=== PATIENT | female | born 1945 | race Caucasian/White ===

== ENCOUNTER 2018-06-05 09:56 | Outpatient (CLI) | payer MEDICARE, BC, SELFPAY ==
[2018-06-05 11:54] LABS: ALT 15 U/L (12-78); AST 21 U/L (15-37); Albumin 3.6 g/dL (3.4-5.0); Alkaline Phosphatase 103 U/L (46-116); Anion Gap 8.5 mmol/L (3-11); BUN 12 mg/dL (7-18); Bilirubin, Total 0.4 mg/dL (0.2-1.0); CO2 28.5 mmol/L (21.0-32.0); CREATININE 0.73 mg/dL (0.55-1.02); Calcium 9.6 mg/dL (8.5-10.1); Chloride 105 mmol/L (98-107); Cholesterol 267 mg/dL (50-200); Glucose 89 mg/dL (70-100); HDL Cholesterol 64 mg/dL (40-60); LDL CHOLESTEROL 179 mg/dL (<100); Potassium 4.6 mmol/L (3.5-5.1); Sodium 142 mmol/L (136-145); Total Protein 6.8 g/dL (6.4-8.2); Triglyceride 93 mg/dL (30-150)
== END 2018-06-05 10:16 ==
DX: E78.5 Hyperlipidemia, unspecified (principal); F32.9 Major depressive disorder, single episode, unspecified; K21.9 Gastro-esophageal reflux disease without esophagitis
CPT/HCPCS: 36415; 80053; 80061; 83721

== ENCOUNTER 2018-12-10 16:33 | Outpatient (CLI) | payer MEDICARE, BC, SELFPAY ==
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
== END 2018-12-10 16:53 ==
PROVIDERS: Visit Provider Family Medicine
DX: S62.632A Displaced fracture of distal phalanx of right middle finger, initial encounter for closed fracture (principal); S67.192A Crushing injury of right middle finger, initial encounter; W23.0XXA Caught, crushed, jammed, or pinched between moving objects, initial encounter
CPT/HCPCS: 73140

== ENCOUNTER 2019-09-25 02:44 | Outpatient (CLI) | payer MEDICARE, BC, SELFPAY ==
[2019-09-25 11:47] LABS: Abs Immature Grans 0.12 k/cumm (0.0-0.09); Absolute Basophil Count 0.02 k/cumm (0.0-0.2); Absolute Eosinophil Count 0.13 k/cumm (0.0-0.7); Absolute Monocyte Count 0.76 k/cumm (0.11-0.7); Absolute Neutrophil Count 8.23 k/cumm (1.2-6.7); Basophils % 0.2; Eosinophils % 1.2; HCT 30.1 % (36.0-46.0); Immature Grans % 1.1 %; Lymphocytes % 14.7; Mean Corp. HGB Concentration 33.2 g/dL (32.0-36.0); Mean Corpuscular Hemoglobin 28.5 pg (27.0-33.0); Mean Corpuscular Volume 85.8 fL (80-95); Neutrophils % 75.8; Platelet Count 493 x1000/uL (130-400); RBC 3.51 m/cumm (4.00-5.20); RBC Distribution Width 12.8 % (11.7-14.6); White Blood Cell Count 10.86 k/cumm (4.4-10.8)
[2019-09-25 12:10] LABS: ALT 21 U/L (14-59); AST 15 U/L (15-37); Albumin 3.2 g/dL (3.4-5.0); Alkaline Phosphatase 118 U/L (46-116); Anion Gap 7.7 mmol/L (3-11); BUN 15 mg/dL (7-18); Bilirubin, Total 0.3 mg/dL (0.2-1.0); CO2 30.3 mmol/L (21.0-32.0); CREATININE 1.04 mg/dL (0.55-1.02); Calcium 10.2 mg/dL (8.5-10.1); Calculated LDL 141 mg/dL (<100); Chloride 96 mmol/L (98-107); Cholesterol 221 mg/dL (<200); Estimated GFR 51.66 (mL/min/1.73m2); Glucose 98 mg/dL (74-106); HDL Cholesterol 51 mg/dL (40-60); Potassium 3.7 mmol/L (3.5-5.1); Sodium 134 mmol/L (136-145); Total Protein 6.9 g/dL (6.4-8.2); Triglyceride 146 mg/dL (<150)
== END 2019-09-25 03:04 ==
DX: I10 Essential (primary) hypertension (principal); I25.10 Atherosclerotic heart disease of native coronary artery without angina pectoris; F32.9 Major depressive disorder, single episode, unspecified; K21.9 Gastro-esophageal reflux disease without esophagitis
CPT/HCPCS: 36415; 80053; 80061; 85025

== ENCOUNTER 2019-10-09 01:21 | Outpatient (CLI) | payer MEDICARE, BC, SELFPAY ==
[2019-10-09 12:23] LABS: HCT 32.1 % (36.0-46.0); HGB 10.3 g/dL (12.0-15.5); Mean Corp. HGB Concentration 32.1 g/dL (32.0-36.0); Mean Corpuscular Volume 87.2 fL (80-95); Mean Platelet Volume 8.1 fL (8.0-11.0); Platelet Count 359 x1000/uL (130-400); RBC 3.68 m/cumm (4.00-5.20); RBC Distribution Width 13.4 % (11.7-14.6); White Blood Cell Count 7.12 k/cumm (4.4-10.8)
[2019-10-09 13:12] LABS: BUN 17 mg/dL (7-18); CREATININE 1.15 mg/dL (0.55-1.02); Calcium 9.6 mg/dL (8.5-10.1); Chloride 102 mmol/L (98-107); Glucose 95 mg/dL (74-106); Potassium 4.1 mmol/L (3.5-5.1); Sodium 140 mmol/L (136-145)
== END 2019-10-09 01:41 ==
DX: D62 Acute posthemorrhagic anemia (principal); K91.89 Other postprocedural complications and disorders of digestive system
CPT/HCPCS: 36415; 80048; 85027

== ENCOUNTER 2020-04-03 08:51 | Outpatient (CLI) | payer MEDICARE, BC, SELFPAY ==
[2020-04-04 21:21] LABS: COVID-19 RT-PCR Result Positive (Negative)
== END 2020-04-03 09:11 ==
DX: Z20.828 Contact with and (suspected) exposure to other viral communicable diseases (principal)
CPT/HCPCS: U0003

== ENCOUNTER 2020-05-25 03:02 | Emergency (ER) | payer MEDICARE, BC, SELFPAY ==
[2020-05-25] VITALS (27 sets, daily range): BP systolic 166–231; BP diastolic 70–86; PULSE 59–79; RESP 8–31; TEMP 36.4; O2SAT 89–97
--- NOTE | 2020-05-25 03:00 | RT.EKG_ITS ---
APPROVED REPORT Exam: Resting ECG Patient Location: E HR:75 bpm ECG Measurements Heart Rate 75 AXIS MO 170 P 52 QRSd 80 QRS -32 QT 399 T 39 QTc 446 Conclusion Sinus rhythm...normal P axis, V-rate 60- 99 Left ventricular hypertrophy...multiple voltage criteria
--- NOTE | 2020-05-25 03:14 | W.ED.GENAD ---
Discharge Plan Disposition Patient Disposition: HOME Condition: Stable Discharge Details Clinical Impression: Chest pain Primary Care Provider: Citlaly Coleman ED Provider: Severiano Dixon Home Meds and New Rx's Prescriptions: Continued aspirin 81 mg tablet,delayed release (DR/EC) 81 mg PO DAILY RF: 0 venlafaxine [Effexor XR] 37.5 mg capsule,extended release 24hr 37.5 mg PO DAILY Qty: 90 RF: 4 montelukast [Singulair] 10 mg tablet 10 mg PO QPM Qty: 90 RF: 3 hydrochlorothiazide 25 mg tablet 25 mg PO DAILY Qty: 90 RF: 3 rosuvastatin [Crestor] 5 mg tablet 5 mg PO HS Qty: 90 RF: 3 albuterol sulfate [ProAir HFA] 90 mcg/actuation HFA aerosol inhaler 2 puff Inhalation QID PRN (Reason: shortness of breath or wheezing) Qty: 1 RF: 2 magnesium 250 MG tablet 250 mg PO PRN PRNRF: 0 potassium gluconate 600 MG tablet 600 mg PO PRN PRNRF: 0 cholecalciferol (vitamin D3) 1,000 UNITS tablet 1 tab PO QAM RF: 0 Discharge Instructions Instructions: Chest Pain (ED) Additional Instructions: Your blood work and cat scan did not show any concerning findings follow up with your primary care provider within 1 week if you have worsening pain, difficulty breathing or feel more ill return to the emergency department Medical Decision Making 75 yo female former smoker, hx of htn who had covid in early March and has had mild chronic dyspnea since comes in with chest pain. She states last night around 9pm had left axilla chest pain radiating to the anterior chest that resolved but woke up around 0200 with the symptoms again. she denies pain now unless she takes a deep breath. On exam has no lesions or rashes on the chets, clear lungs and speaking in full sentences. Normal peripheral pulses. Denies diaphoresis, n/v, back pain. Has no calf tenderness. EKG nondiagnostic, will obtain troponin. Given pleuritic nature of her chest pain wells is moderate, will obtain CTA to evaluate for pe. No tearing back pain and normal pulses so doubt dissection Pt's labs and imaging unremarkable and she remains asymptomatic. I recommended observation admission but she declined and has capacity to make her own decisions. She understands risks of missing Mi's with further testing and is willing to accept these risks including possible and permanent disability. She is willing to stay for a delta troponin, will continue to monitor pt remains asymptomatic and without complaints, second troponin negative and still declines observation admission. Will d/c and have her f/u with her pcp, return precautions given Differential Diagnosis Differential Diagnosis: nstemi, chest wall pain, pe, pna Medical Records Medical records reviewed: Yes I reviewed the patient's medical records. Imaging Data Radiologic Study: Attestation: I personally reviewed and interpreted this imaging study as follows: Imaging: CT Scan Radiologist's impression: IMPRESSION: 1. No evidence of acute pulmonary embolism. 2. Cardiac size normal. No pericardial effusion. No right heart strain. 3. Thoracic aorta normal caliber without aneurysm, dissection or disruption. 4. No consolidative pneumonia. No overt pulmonary edema. Mild basilar dependent and subsegmental atelectasis. Chronic pleural and parenchymal changes. Lab Data Lab results reviewed: Yes I reviewed the patient's lab results. ECG Data Attestation: I personally reviewed and interpreted this ECG (s) as follows: Prior ECG tracings: not available for review Interpretation: sinus rhythm, rate of 75, pr 170, qtc 446 HPI General Mode of arrival: ambulatory. Date/Time Provider Initiated Documentation: 05/25/20 03:03. Limitations to Documentation: no limitations. Information obtained by: patient. History of Present Illness 75 year old F presents to the emergency department with the chief complaint of chest pain, described as moderate, Patient started experiencing this hour(s) (1) and it has been intermittent. No relieving factors improve symptom(s), Other factors that worsen symptoms (deep breaths) . Patient notes no other symptoms.. Patient did receive the following treatments prior to arrival, Aspirin Related Data Home Medications Medication Instructions Recorded Confirmed magnesium 250 mg PO PRN PRN 07/14/16 05/25/20 potassium gluconate 600 mg PO PRN PRN 07/14/16 05/25/20 cholecalciferol (vitamin D3) 1 tab PO QAM 07/31/16 05/25/20 venlafaxine 37.5 mg 37.5 mg PO DAILY #90 cap 04/25/19 05/25/20 capsule,extended release 24 hr aspirin 81 mg tablet,delayed 81 mg PO DAILY 01/27/20 01/25/21 release montelukast 10 mg tablet 10 mg PO QPM #90 tab 09/30/19 05/25/20 hydrochlorothiazide 25 mg tablet 25 mg PO DAILY #90 tab 01/21/20 05/25/20 rosuvastatin 5 mg tablet 5 mg PO HS #90 tab-cap 03/17/20 05/25/20 albuterol sulfate 90 mcg/actuation 2 puff INHALATION QID PRN #1 05/05/20 05/25/20 aerosol inhaler inhaler Previous Rx's Medication Instructions Recorded venlafaxine 37.5 mg 37.5 mg PO DAILY #90 cap 04/25/19 capsule,extended release 24 hr montelukast 10 mg tablet 10 mg PO QPM #90 tab 09/30/19 hydrochlorothiazide 25 mg tablet 25 mg PO DAILY #90 tab 01/21/20 rosuvastatin 5 mg tablet 5 mg PO HS #90 tab-cap 03/17/20 albuterol sulfate 90 mcg/actuation 2 puff INHALATION QID PRN #1 05/05/20 aerosol inhaler inhaler Allergies Allergy/AdvReac Type Severity Reaction Status Date / Time Influenza Virus Vaccines Allergy Intermediate Verified 05/25/20 03:25 levofloxacin [From Levaquin] Allergy Intermediate hives Verified 05/25/20 03:25 egg Allergy Unknown Pt reports Verified 05/25/20 03:25 no allergy she eats eggs. lactase Allergy Unknown Verified 05/25/20 03:25 Sulfa (Sulfonamide Allergy Unknown Verified 05/25/20 03:25 Antibiotics) Tetracyclines Allergy Unknown Verified 05/25/20 03:25 wheat Allergy Unknown Verified 05/25/20 03:25 atorvastatin calcium AdvReac Intermediate joint aches Verified 05/25/20 03:25 [From Lipitor] fluvastatin sodium AdvReac Intermediate joint aches Verified 05/25/20 03:25 [From Lescol] oxycodone AdvReac Intermediate Nausea Verified 05/25/20 03:25 simvastatin [From Zocor] AdvReac Intermediate joint aches Verified 05/25/20 03:25 lactose AdvReac Mild GI upset Verified 05/25/20 03:25 pravastatin AdvReac Mild THUMB PAIN Verified 05/25/20 03:25 Review of Systems All systems reviewed & are unremarkable except as noted in HPI and below Constitutional Constitutional: Denies chills, Denies fever(s) and Denies weakness Respiratory Respiratory: Denies cough Gastrointestinal Gastrointestinal: Denies abdominal pain, Denies nausea and Denies vomiting Musculoskeletal Musculoskeletal: Denies joint swelling Neurologic Neurologic: Denies weakness Psychiatric Psychiatric: Denies depression [facility] Medical History (Updated 05/25/20 @ 04:42 by Severiano Dixon MD) Actinic keratoses Anemia Constipation Elevated BP without diagnosis of hypertension Essential hypertension Impacted cerumen, bilateral Pneumonia of right lung due to infectious organism (03/20/15) Post-operative complication Renal artery stenosis Stint placed [facility] 08/2019 Viral wart White coat syndrome with diagnosis of hypertension Surgical History AAA REPAIRED 04/16 [facility] Evaluated 06/20 & 06/2019 - [facility] (leaking proximal endograft, needs 2 stents RIGHT artery & surgical reinforcement) - completed 08/2019 at [facility] Biopsy of breast RIGHT Colonoscopy - IV Sedation (~03/2012) [facility] Extraction of cataract 05/29/14; left and right HERNIA REPAIR (~03/2002) EPIGASTRIC Total 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 KENDRICK Family History Mother , 82 Essential hypertension Abdominal aortic aneurysm Father , 79 Renal failure Sister Essential hypertension Heart disease Hyperlipidemia Son Hyperlipidemia Depression Son No problems noted. Social History Smoking/Tobacco Use Status: Former Tobacco Use Second Hand Exposure: Yes Smoking risk assessment performed?: Yes Alcohol Intake: never Drug use: Never Counseling given: No Counseling provided: none Caregiver/Support person: No Household members: none Housing: house Communication Needs: Hard of Hearing Do you need help understanding health information?: Rarely Pets and animals: Yes Pets and animals: cat(s) Sexually active: No Do you think of yourself as: straight/heterosexual Current gender identity: female What is your relationship status?: How often do you talk on the phone with friends or family?: three or more times per week How often do you get together with friends or relatives?: twice per week How often do you attend holiness or pentecostalism services?: 4 or more times per year Do you belong to any clubs or organized social groups?: no Panel score (0-1 are the most socially isolated patients): 2 What type of physical activity do you participate in: decline to answer Duration: decline to answer Frequency: decline to answer Alona/Mormonism: Restoration Special alona needs: No Seatbelt use: always Helmet use: No Drive intox or ride w/intox 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 Do you feel safe at home: Yes Do you feel safe in your relationship?: Yes Exam Const General: no acute distress Orientation: alert HENMT Head: normal to inspection Ears: external ears normal General nose exam: external nose normal Mouth: moist mucous membranes Eyes General: appearance normal, both eyes and all related structures Neck Neck: normal visual inspection Chest Chest: normal inspection of the chest Resp Effort & Inspection: normal respiratory effort and able to speak in complete sentences Cardio Rate: regular rate Skin General skin exam: no rashes or lesions noted Neuro General: patient alert and patient oriented x3 Extrem General: normal to inspection Psych Mental Status: mental status grossly normal
--- NOTE | 2020-05-25 03:15 | DI.CT_ITS ---
EXAM: CT CHEST PE CTA CLINICAL HISTORY: chest pain and shortness of breath. TECHNIQUE: Imaging Protocol: CT angiography of the chest was performed using pulmonary embolus gabi col. Multi planar reconstructions were performed. CONTRAST MATERIAL: Intravenous: Omnipaque 350 Contrast volume: 71 cc COMPARISON: CT CTA ABDOMEN from 11/23/2016 FINDINGS: CHEST: PULMONARY ARTERIES: There are no intraluminal filling defects to suggest acute pulmonary emboli. LUNGS: No confluent infiltrates nor pleural effusions nor pulmonary infarction. Mild benign-appearin g increased markings probable atelectasis noted in the posterior basal segment of the right lower lob e.. There are no significant focal findings in the trachea and mainstem bronchi.. There are no pleu ral effusions. MEDIASTINUM: There is no hilar nor mediastinal adenopathy. Visualized thyroid unremarkable.Size of th e retrocardiac hiatal hernia significantly decreased when compared to 2017. CARDIAC: Heart size is upper normal. There is no pericardial effusion.Caliber of the thoracic aorta is within normal limits. There is no evidence of shift of the interventricular septum. Lower most im ages of this study reveal aortic EVAR as well as additional stents in the celiac and superior mesente sebas arteries as well as in both renal arteries. There is no evidence of aortic dissection. PARTIALLY VISUALIZED UPPERMOST ABDOMEN: See above OSSEOUS: No significant osseous lesions.. IMPRESSION: 1. No evidence of acute pulmonary emboli. No evidence of pulmonary infarction.No pleural effusions. Mild increased markings-atelectasis in the right lung base. 2. No obvious right heart strain. 3. Abdominal aortic EVAR plus additional stents as described above noted. RADIATION DOSE DELIVERED: LINK-TO-SR Total DLP DATA REPOSITORY: All CT scans at this facility are submitted to the National Radiology Data Registry (NRDR) Dose Index Registry (DIR) with the [employer] (ACR). RADIATION OPTIMIZATION: All CT scans at this facility use at least one of these dose optimization te chniques: automated exposure control; mA and/or kV adjustment per patient size (includes targeted exa ms where dose is matched to clinical indication); or iterative reconstruction.
[2020-05-25 03:45] LABS: Abs Immature Grans 0.04 10^3/uL (0.0-0.06); Absolute Basophil Count 0.05 10^3/uL (0.0-0.2); Absolute Eosinophil Count 0.29 10^3/uL (0.0-0.7); Absolute Lymphocyte Count 2.02 10^3/uL (1.2-3.4); Absolute Monocyte Count 0.56 10^3/uL (0.1-0.8); Absolute Neutrophil Count 5.84 10^3/uL (1.2-6.7); Basophils % 0.6; Eosinophils % 3.3; HCT 40.6 % (36.0-46.0); HGB 13.1 g/dL (11.2-15.7); Immature Grans % 0.5; MCH 28.7 pg (27.0-33.0); MCHC 32.3 % (32.0-36.0); MPV 8.6 fL (8.0-11.0); Monocytes % 6.4; Neutrophils % 66.2; Nucleated RBC 0 %; Platelet Count 262 10^3/uL (130-400); RBC 4.56 10^6/uL (3.93-5.22); RDW 13.7 % (11.7-14.6); RDW-SD 44.4 fL
[2020-05-25 04:03] LABS: ALT 22 U/L (14-59); AST 16 U/L (15-37); Alkaline Phosphatase 92 U/L (46-116); Anion Gap 6.5 mmol/L (3-11); BUN 14 mg/dL (7-18); Bilirubin, Direct 0.07 mg/dL (0.00-0.20); Bilirubin, Total 0.4 mg/dL (0.2-1.0); CO2 30.5 mmol/L (21.0-32.0); CREATININE 0.96 mg/dL (0.55-1.02); Calcium 9.6 mg/dL (8.5-10.1); Chloride 101 mmol/L (98-107); Estimated GFR 56.51 (mL/min/1.73m2); Glucose 114 mg/dL (74-106); Lipase 313 U/L (73-393); Magnesium 2.3 mg/dL (1.8-2.4); Potassium 3.5 mmol/L (3.5-5.1); Sodium 138 mmol/L (136-145)
[2020-05-25] MEDS: Omnipaque 350 MG/ML 100 ML BTL IJ (04:03)
[2020-05-25] MEDS: Normal Saline - Diluent 50 ML VIAL IV (04:04)
[2020-05-25] MEDS: Normal Saline Flush 10 ML SYR IVP (04:04)
[2020-05-25 04:17] LABS: PTT Activated 23.8 sec (21.0-27.5); Prothrombin Time 9.6 sec (9.3-11.0)
[2020-05-25 04:20] LABS: Troponin I < 0.05 ng/mL (<0.06)
--- NOTE | 2020-05-25 04:22 | DI.VRAD_ITS ---
PROCEDURE INFORMATION: Exam: CT Angiography Chest With Contrast Exam date and time: 05/25/2020 3:30 AM Age: 75 years old Clinical indication: Shortness of breath; Type not specified; Prior surgery; Surgery date: 6+ months; Surgery type: Stent placed in aorta; Patient HX: Chest pain and SOB TECHNIQUE: Imaging protocol: Computed tomographic angiography of the chest with intravenous contrast. 3D rendering (Not supervised by radiologist): MIP and/or 3D reconstructed images were created by the technologist. Radiation optimization: All CT scans at this facility use at least one of these dose optimization techniques: automated exposure control; mA and/or kV adjustment per patient size (includes targeted exams where dose is matched to clinical indication); or iterative reconstruction. Contrast material: OMNIPAQUE 350; Contrast volume: 71 ml; Contrast route: INTRAVENOUS (IV); COMPARISON: CT CHEST WITH CONTRAST 04/07/2015 1:44 PM FINDINGS: Pulmonary arteries: No evidence of acute pulmonary embolism. Aorta: Thoracic aorta normal caliber without aneurysm, dissection or disruption. Other arteries: Partially visualized abdominal aortic stent with stents within the celiac trunk, superior mesenteric artery and both renal arteries which appear patent. Lungs: No consolidative pneumonia. No overt pulmonary edema. Mild basilar dependent and subsegmental atelectasis. Chronic pleural and parenchymal changes. 3 mm noncalcified nodule right upper lobe laterally, unchanged from previous. No further evaluation necessary. Pleural space: No pleural effusion. No pneumothorax. Heart: Cardiac size normal. No pericardial effusion. No right heart strain. Mediastinal space: Small hiatal hernia. Lymph nodes: Unremarkable. No enlarged lymph nodes. Liver: Multiple liver cysts, similar to previous. No obvious enlargement. No other masses. Bones/joints: Moderate degenerative changes noted throughout the spine. No fracture or subluxation. No obviously displaced acute rib fractures. No sternal fracture. Soft tissues: Unremarkable. IMPRESSION: 1. No evidence of acute pulmonary embolism. 2. Cardiac size normal. No pericardial effusion. No right heart strain. 3. Thoracic aorta normal caliber without aneurysm, dissection or disruption. 4. No consolidative pneumonia. No overt pulmonary edema. Mild basilar dependent and subsegmental atelectasis. Chronic pleural and parenchymal changes. Dictated and Authenticated by: Marco Combs MD. Ordering:ARIK العلي MD
--- NOTE | 2020-05-25 04:40 | NUR.NOTE ---
Nursing Note:Patient has decided to wait and have her second Troponin checked at 0615.
[2020-05-25 06:37] LABS: Troponin I < 0.05 ng/mL (<0.06)
== END 2020-05-25 06:47 | disposition home or self-care (01) ==
PROVIDERS: Emergency Provider Emergency Medicine
DX: R07.89 Other chest pain (principal); Z53.29 Procedure and treatment not carried out because of patient's decision for other reasons; I10 Essential (primary) hypertension; Z86.16 Personal history of COVID-19
CPT/HCPCS: 36415; 71275; 80053; 83690; 93005; 99285; 82248; 83735; 84484; 85025; 85610; 85730; 93010; 99284; J3490

== ENCOUNTER 2020-09-17 09:00 | Outpatient (CLI) | payer MEDICARE, BC, SELFPAY ==
--- NOTE | 2020-09-17 14:45 | DI.RAD_ITS ---
Exam(s) XR LUMBAR SPINE COMPLETE EXAM: XR LUMBAR SPINE COMPLETE CLINICAL HISTORY: lumbar back pain,m54.5. TECHNIQUE: 2D digital imaging was performed. COMPARISON: No exams were available for comparison FINDINGS: There is no evidence of acute fracture or listhesis nor pars defects. Mild loss of height of L1 note d approximately 10 percent and not acute appearing. There is moderate-advanced disc space narrowing at L5-S1 level. Also moderate disc space narrowing T12-L1. Mild retrolisthesis of L1 upon L2. Othe r disc spaces exhibit normal height. There is facet degenerative change at the lower 2 levels. Sacr oiliac joints unremarkable. No osseous lesions. Incidentally noted is an aortic EVAR and bilateral renal artery endovascular stents as well as a righ t hip prosthesis. IMPRESSION: DATA REPOSITORY: RADIATION DOSE DELIVERED:
--- NOTE | 2020-09-17 14:50 | DI.RAD_ITS ---
Exam(s) XR HIP LT COMPLETE AP PELVIS EXAM: XR HIP LT COMPLETE AP PELVIS CLINICAL HISTORY: left hip pain,m25.552. TECHNIQUE: 2D digital imaging was performed. COMPARISON: CR Pelvis - 1 View from 10/13/2016 FINDINGS: Right hip prosthesis is noted. Mild degenerative changes in the left hip. There is now an aortic EVAR evident. Distal [employer] most is are at the level of the common iliac arteri es. Visualized bowel gas pattern is nonspecific. No osseous lesions evident the pelvis. On the lat eral view of the left hip there is an air possible subtle lucency seen lower down in the mid aspect o f the femur, possibly significant. Recommend dedicated femur films as the next step appear. IMPRESSION: DATA REPOSITORY: RADIATION DOSE DELIVERED:
== END 2020-09-17 09:20 ==
PROVIDERS: Visit Provider Nurse Practitioner Family
DX: M25.552 Pain in left hip (principal); M54.5 Low back pain; M51.37 Other intervertebral disc degeneration, lumbosacral region; M51.35 Other intervertebral disc degeneration, thoracolumbar region; Z96.641 Presence of right artificial hip joint
CPT/HCPCS: 72110; 73502

== ENCOUNTER 2020-09-18 13:07 | Outpatient (CLI) | payer MEDICARE, BC, SELFPAY ==
--- NOTE | 2020-09-18 14:08 | DI.RAD_ITS ---
Exam(s) XR FEMUR LT EXAM: XR FEMUR LT CLINICAL HISTORY: per left hip film radiology recommendation m25.552 lt hip pain TECHNIQUE: COMPARISON: CR XR HIP LT COMPLETE AP PELVIS from 09/17/2020 FINDINGS: Four views were obtained. There are mild degenerative changes of the left hip. No apparent lytic or sclerotic lesion of the femur. Mild degenerative changes of the knee noted. IMPRESSION: RADIATION DOSE DELIVERED: Total DLP
== END 2020-09-18 13:27 ==
PROVIDERS: Visit Provider Nurse Practitioner Family
DX: M25.552 Pain in left hip (principal); M16.12 Unilateral primary osteoarthritis, left hip; M17.12 Unilateral primary osteoarthritis, left knee
CPT/HCPCS: 73552

== ENCOUNTER → 2020-10-01 10:55 | Outpatient (BNVA) | payer MEDICARE, BC, SELFPAY | PROVIDERS: Visit Provider Student in an Organized Health Care Education/Training Program | DX: M70.62 Trochanteric bursitis, left hip (principal); Z96.651 Presence of right artificial knee joint | CPT/HCPCS: 20610; J1040 ==

== ENCOUNTER 2021-03-22 00:38 | Outpatient (CLI) | payer MEDICARE, BC, SELFPAY ==
--- NOTE | 2021-03-22 11:10 | DI.MAMMO_ITS ---
Exam(s) MAMMO SCREENING EXAM: MAMMO SCREENING CLINICAL HISTORY: screening,z12.39 TECHNIQUE: Mammograms were interpreted according to the usual protocol including computer analysis w [employer] CAD system, tomosynthesis and C-view imaging. COMPARISON: 2012 through 2014 FINDINGS: The breasts are composed of scattered fibroglandular densities, Breast Density category B. No suspicious masses or suspicious microcalcifications are seen. No skin thickening or abnormal axillary lymph nodes are seen. There has been no significant change from prior exams. IMPRESSION: BI-RADS Category 1, Negative mammogram Yearly screening mammography is recommended. Breast Density - Category B, scattered fibroglandular densities. A negative radiographic report should not delay biopsy if a dominant or clinically suspicious mass is present. Up to ten percent of cancers are not identified on mammography. A negative report may reinforce clinical impression. Adenosis and dense breasts may obscure an underlying neoplasm. False positive reports average 6 to 10%. Patient will receive a letter notifying them of these results.
== END 2021-03-22 00:58 ==
DX: Z12.31 Encounter for screening mammogram for malignant neoplasm of breast (principal)
CPT/HCPCS: 77063; 77067

== ENCOUNTER 2021-06-30 16:58 | Outpatient (REF) | payer MEDICARE, BC, SELFPAY | END 2021-06-30 16:59 | disposition home or self-care (01) | LOC: LBN 16:58 | PROVIDERS: Visit Provider Family Medicine | DX: N39.0 Urinary tract infection, site not specified (principal) | CPT/HCPCS: 87086 ==

== ENCOUNTER → 2022-02-11 15:00 | Outpatient (CLI) | payer MEDICARE, BC, SELFPAY ==
--- NOTE | 2022-02-11 14:00 | DI.RAD_ITS ---
Exam(s) XR CHEST 2V PA LATERAL EXAM: XR CHEST 2V PA LATERAL CLINICAL HISTORY: BRONCHITIS--J40 TECHNIQUE: 2D digital imaging was performed of the chest. Two images were obtained. PA and lateral views were obtained. COMPARISON: CR CHEST 2 VIEWS PA,LAT from 04/15/2015 FINDINGS: MEDIASTINUM: Normal. HEART: Normal. PULMONARY VASCULATURE: Normal. LUNGS: Clear. PLEURAL SPACE: No pleural effusion or pneumothorax. BONE:Within normal limits for the patient's age. OTHER FINDINGS:An abdominal aortic stent is in place. IMPRESSION: No acute pulmonary findings. DATA REPOSITORY: RADIATION DOSE DELIVERED:
== END ==
PROVIDERS: PCP Family Medicine; Visit Provider Nurse Practitioner Family
DX: J40 Bronchitis, not specified as acute or chronic (principal)
CPT/HCPCS: 71046

== ENCOUNTER 2022-04-04 14:52 | Outpatient (REF) | payer MEDICARE, BC, SELFPAY | END 2022-04-04 14:53 | disposition home or self-care (01) | LOC: LBN 14:52 | PROVIDERS: PCP Family Medicine; Visit Provider Family Medicine | DX: N76.0 Acute vaginitis (principal) | CPT/HCPCS: 87480; 87510; 87660 ==

== ENCOUNTER → 2022-04-08 00:36 | Outpatient (CLI) | payer MEDICARE, BC, SELFPAY ==
--- NOTE | 2022-04-08 10:51 | DI.DEXA_ITS ---
Exam(s) XR DEXA BONE DENSITY W/WO ADENIKE EXAM: XR DEXA BONE DENSITY W/WO ADENIKE CLINICAL HISTORY: OSTEOPOROSIS,M81.0 TECHNIQUE: COMPARISON: CR XR HIP LT COMPLETE AP PELVIS from 09/17/2020 FINDINGS: Lateral Spine Image: Unremarkable. No compression deformities identified. Left hip: Total T-Score: -0.8. This compares to 0.0 on the prior examination. Total Z-Score: 1.2 T- and Z-scores: Within normal limits. Left forearm: Total T-Score: -2.0. Compares to -1.5 on the prior examination. Total Z-Score: 0.7 T- and Z-scores: Findings are consistent with osteopenia. IMPRESSION: Findings of osteopenia in the left forearm.
== END ==
PROVIDERS: PCP Family Medicine; Visit Provider Family Medicine
DX: M85.88 Other specified disorders of bone density and structure, other site (principal); Z13.820 Encounter for screening for osteoporosis
CPT/HCPCS: 77080

== ENCOUNTER 2022-07-07 11:36 | Emergency (ER) | payer MEDICARE, BC, SELFPAY ==
[2022-07-07] VITALS (70 sets, daily range): BP systolic 169–217; BP diastolic 68–101; PULSE 59–79; RESP 7–37; TEMP 36–36.7; O2SAT 90–99
--- NOTE | 2022-07-07 11:30 | RT.EKG_ITS ---
APPROVED REPORT Exam: Resting ECG Reason for Exam: chest pain Patient Location: E HR:70 bpm ECG Measurements Heart Rate 70 AXIS ND 160 P 67 QRSd 79 QRS -46 QT 390 T 46 QTc 422 Conclusion Sinus rhythm...normal P axis, V-rate 60- 99 Left anterior fascicular block...axis(240,-40), init forces inf Left ventricular hypertrophy...multiple voltage criteria no stemi
--- NOTE | 2022-07-07 12:01 | W.ED.GENAD ---
Discharge Plan Disposition Patient Disposition: Home Condition: Stable Discharge Details Clinical Impression: Chest pain Primary Care Provider: Vickie Adams ED Provider: Severiano Dixon Home Meds and New Rx's Prescriptions: Continued meclizine 25 mg tablet 25 mg PO DAILY PRN (Reason: motion sickness) Qty: 10 0RF Rx Instructions: may take one tab daily for vertigo symptoms aspirin 81 mg tablet,chewable 81 mg PO DAILY fluticasone propionate [Allergy Relief (fluticasone)] 50 mcg/actuation spray,suspension 1 spray intranasal BID PRN (Reason: nasal congestion) Qty: 16 2RF albuterol sulfate [ProAir HFA] 90 mcg/actuation HFA aerosol inhaler 2 puff Inhalation QID PRN (Reason: shortness of breath or wheezing) Qty: 1 2RF hydrochlorothiazide 25 mg tablet 25 mg PO DAILY Qty: 90 3RF omeprazole 20 mg capsule,delayed release(DR/EC) 20 mg PO DAILY PRN (Reason: GERD) Qty: 90 0RF Rx Instructions: Take in the evening, 2 hours from last food. rosuvastatin [Crestor] 5 mg tablet 5 mg PO HS Qty: 90 3RF Rx Instructions: for cholesterol venlafaxine [Effexor XR] 37.5 mg capsule,extended release 24hr 37.5 mg PO DAILY Qty: 90 4RF magnesium 250 MG tablet 250 mg PO PRN PRN potassium gluconate 600 MG tablet 600 mg PO PRN PRN Patient Comments: 07/14/16 per pt uses for leg cramps. Discharge Instructions Instructions: Chest Pain (ED) Additional Instructions: your blood work and cat scan did not show concerning findings follow up with your primary care provider within 1 week if you feel more ill, severe worsening pain or difficulty breathing return to the emergency department Medical Decision Making 78 yo female with hx of AAA s/p repair years ago, renal artery stenosis, gerd, hld, who comes in with cc of sharp left sided chest pain earlier this morning lasting a few minutes and then had posterior right shoulder pain. These pains have resolved, were not severe, no dyspnea or diaphoresis. She arrives stable speaking clearly in no distress. She states the pain was in her left anterior chest. She appears well speaking clearly in no distress. She has clear lungs, no murmurs, soft nontender abdomen, normal peripheral pulses. Unclear etiology for her fleeting chest pain earlier, will obtain ekg and troponin as well as d dimer to screen for pe. No tearing back painand normal peripheral pulses so doubt dissection d dimer elevated, will pursue cta, still asymptomatic and initial troponin negative patient stable and asymptomatic, cta and delta troponin negative. Discussed with pt and she feels comfortable with d/c, will have her f/u with pcp, return precautions given Differential Diagnosis Differential Diagnosis: chest wall pain, nstemi, pe Medical Records Medical records reviewed: Yes I reviewed the patient's medical records. Imaging Data Radiologic Study: Attestation: I personally reviewed and interpreted this imaging study as follows: Imaging: CT Scan Radiologist's impression: no acute findings Lab Data Lab results reviewed: Yes I reviewed the patient's lab results. ECG Data Attestation: I personally reviewed and interpreted this ECG (s) as follows: Prior ECG tracings: available for review Interpretation: sinus rhythm, rate of 70, pr 160, no acute changes from prior ekg no stemi HPI General Mode of arrival: ambulatory. Date/Time Provider Initiated Documentation: 07/07/22 11:46. Limitations to Documentation: no limitations. Information obtained by: patient. History of Present Illness 77 year old F presents to the emergency department with the chief complaint of chest pain, described as mild, Patient started experiencing this hour(s) (2) and it has been now resolved. No relieving factors improve symptom(s), No exacerbating factors reported . Patient notes denies fever/chills. Patient did receive the following treatments prior to arrival, none Related Data Home Medications Medication Instructions Recorded Confirmed magnesium 250 mg tablet 250 mg PO PRN PRN 07/14/16 07/07/22 potassium gluconate 600 mg (99 mg) 600 mg PO PRN PRN 07/14/16 07/07/22 tablet meclizine 25 mg tablet 25 mg PO DAILY PRN motion sickness 09/16/20 07/07/22 #10 tabs fluticasone propionate 50 1 spray intranasal BID PRN nasal 10/14/21 07/07/22 mcg/actuation nasal congestion #16 grams spray,suspension (Allergy Relief (fluticasone)) albuterol sulfate 90 mcg/actuation 2 puff inhalation QID PRN 03/14/22 07/07/22 aerosol inhaler (ProAir HFA) shortness of breath or wheezing ##1 hydrochlorothiazide 25 mg tablet 25 mg PO DAILY #90 tabs 03/14/22 07/07/22 omeprazole 20 mg capsule,delayed 20 mg PO DAILY PRN GERD #90 caps 03/14/22 07/07/22 release rosuvastatin 5 mg tablet (Crestor) 5 mg PO HS #90 tab-caps 03/14/22 07/07/22 venlafaxine 37.5 mg 37.5 mg PO DAILY #90 caps 03/14/22 07/07/22 capsule,extended release 24 hr (Effexor XR) aspirin 81 mg chewable tablet 81 mg PO DAILY 04/04/22 07/07/22 Previous Rx's Medication Instructions Recorded meclizine 25 mg tablet 25 mg PO DAILY PRN motion sickness 09/16/20 #10 tabs fluticasone propionate 50 1 spray intranasal BID PRN nasal 10/14/21 mcg/actuation nasal congestion #16 grams spray,suspension (Allergy Relief (fluticasone)) albuterol sulfate 90 mcg/actuation 2 puff inhalation QID PRN 03/14/22 aerosol inhaler (ProAir HFA) shortness of breath or wheezing ##1 hydrochlorothiazide 25 mg tablet 25 mg PO DAILY #90 tabs 03/14/22 omeprazole 20 mg capsule,delayed 20 mg PO DAILY PRN GERD #90 caps 03/14/22 release rosuvastatin 5 mg tablet (Crestor) 5 mg PO HS #90 tab-caps 03/14/22 venlafaxine 37.5 mg 37.5 mg PO DAILY #90 caps 03/14/22 capsule,extended release 24 hr (Effexor XR) Allergies Allergy/AdvReac Type Severity Reaction Status Date / Time levofloxacin [From Levaquin] Allergy Intermediate hives Verified 07/07/22 10:44 lactase Allergy Unknown Verified 07/07/22 10:44 Sulfa (Sulfonamide Allergy Unknown Verified 07/07/22 10:44 Antibiotics) Tetracyclines Allergy Unknown Verified 07/07/22 10:44 wheat Allergy Unknown Verified 07/07/22 10:44 atorvastatin calcium AdvReac Intermediate joint aches Verified 07/07/22 10:44 [From Lipitor] fluvastatin sodium AdvReac Intermediate joint aches Verified 07/07/22 10:44 [From Lescol] oxycodone AdvReac Intermediate Nausea Verified 07/07/22 10:44 simvastatin [From Zocor] AdvReac Intermediate joint aches Verified 07/07/22 10:44 lactose AdvReac Mild GI upset Verified 07/07/22 10:44 pravastatin AdvReac Mild THUMB PAIN Verified 07/07/22 10:44 General Stated Complaint: Chest Pain ROBERT: 3 Review of Systems All systems reviewed & are unremarkable except as noted in HPI and below Constitutional Constitutional: Denies chills, Denies fever(s) and Denies weakness Cardiovascular Cardiovascular: Denies dyspnea Respiratory Respiratory: Denies cough and Denies dyspnea Gastrointestinal Gastrointestinal: Denies abdominal pain, Denies nausea and Denies vomiting Genitourinary Genitourinary: Denies dysuria Musculoskeletal Musculoskeletal: Denies joint swelling Integumentary/Breasts Skin/Breast: Denies rash Neurologic Neurologic: Denies weakness Psychiatric Psychiatric: Denies depression [facility] All Active Problems (Updated 07/07/22 @ 15:52 by Severiano Dixon MD) Chest pain (Acute) Hemorrhoids (Acute) Globus sensation (Acute) Post-nasal drip (Acute) Anemia (Chronic) Renal artery stenosis (Acute) Stint placed [facility] 08/2019 AAA (Acute) REPAIRED 04/16 [facility] Evaluated 06/20 & 06/2019 - [facility] (leaking proximal endograft, needs 2 stents RIGHT artery & surgical reinforcement) - completed 08/2019 at [facility] White coat syndrome with diagnosis of hypertension (Acute) Viral wart (Acute) Essential hypertension (Acute) Increased BMI (body mass index) (Acute 02/22/17) Hyperlipidemia (Acute 03/30/04) F/H CAD Hiatal hernia (Acute) 06/01/15 CT at [facility], most of stomach in thorax fundoplication times 2 Gastroesophageal reflux disease (Acute) 04/11 EGD, Dr Hubbard ([facility]) 10/18/17 :aparoscopic Paraesophageal Hernia Repair Depressive disorder (Acute) Coronary artery calcification seen on CT scan (Acute 06/01/15) [facility] Actinic keratosis of right worship (Acute 10/04/17) & lower right cheek Medical History (Updated 07/07/22 @ 15:52 by Severiano Dixon MD) Acute pain of left knee (08/30/17) Bronchitis Bunion of great toe (01/17/14) right great toe (seven surg and revisions) 03/12 [facility] recommend non surgical tx Cataract Chronic right shoulder pain (10/04/17) Constipation Elevated BP without diagnosis of hypertension Impacted cerumen, bilateral Pneumonia of right lung due to infectious organism (03/20/15) Right hip pain (05/06/14) h/o trochanteric bursitis [employer] lentigo URI (upper respiratory infection) Viral wart on cheek Surgical History (Updated 04/04/22 @ 10:12 by Vickie Adams MD, [place]) Biopsy of breast RIGHT Colonoscopy - IV Sedation (~03/2012) [facility] Extraction of cataract 05/29/14; left and right HERNIA REPAIR (~03/2002) EPIGASTRIC Total 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 KENDRICK Family History Mother , 82 Essential hypertension Abdominal aortic aneurysm Father , 79 Renal failure Sister Essential hypertension Heart disease Hyperlipidemia Son Hyperlipidemia Depression Son No problems noted. Social History Smoking/Tobacco Use Status: Former Tobacco Use Second Hand Exposure: Yes Smoking risk assessment performed?: Yes Alcohol Intake: never Drug use: Never Counseling given: No Counseling provided: none Caregiver/Support person: No Household members: none Housing: house Communication Needs: Hard of Hearing Do you need help understanding health information?: Rarely Pets and animals: Yes Pets and animals: cat(s) Sexually active: No Do you think of yourself as: straight/heterosexual Current gender identity: female What is your relationship status?: How often do you talk on the phone with friends or family?: three or more times per week How often do you get together with friends or relatives?: twice per week How often do you attend faith or alevism services?: 4 or more times per year Do you belong to any clubs or organized social groups?: no Panel score (0-1 are the most socially isolated patients): 2 What type of physical activity do you participate in: decline to answer Duration: decline to answer Frequency: decline to answer Alona/Cheondoism: Bahai Special alona needs: No Seatbelt use: always Helmet use: No Drive intox or ride w/intox driver license examiner: No Do you feel safe at home: Yes Do you feel safe in your relationship?: Yes Exam Const General: no acute distress Orientation: alert HENMT Head: normal to inspection Ears: external ears normal General nose exam: external nose normal Mouth: moist mucous membranes Eyes General: appearance normal, both eyes and all related structures Neck Neck: normal visual inspection Chest Chest: normal inspection of the chest Resp Effort & Inspection: normal respiratory effort and able to speak in complete sentences Auscultation: clear to auscultation bilaterally Cardio Jugular venous pressure: no JVD Rate: regular rate Heart Sounds: no murmurs Skin General skin exam: no rashes or lesions noted Neuro General: patient alert and patient oriented x3 Extrem General: normal to inspection Psych Mental Status: mental status grossly normal Course Vital Signs Vital signs: Vital Signs Temperature 36.0 C L 07/07/22 11:37 Pulse 71 07/07/22 11:37 Pulse Oximetry 98 07/07/22 11:37 Temperature 36.0 C L 07/07/22 11:37 Temperature Source Tympanic 07/07/22 11:37 Pulse 71 07/07/22 11:37 Respiratory Rate 14 07/07/22 11:58 Respiratory Effort Normal 07/07/22 11:58 Respiratory Depth Normal 07/07/22 11:58 Respiratory Pattern Normal 07/07/22 11:58 Blood Pressure Position Sitting 07/07/22 11:37 Pulse Oximetry 98 07/07/22 11:37 Oxygen Delivery Method Room Air 07/07/22 11:37 Oxygen Flow Rate 0 07/07/22 11:37 Pain Level 0 07/07/22 11:37
[2022-07-07 12:11] LABS: Abs Immature Grans 0.04 10^3/uL (0.0-0.06); Absolute Basophil Count 0.03 10^3/uL (0.0-0.2); Absolute Eosinophil Count 0.21 10^3/uL (0.0-0.7); Absolute Lymphocyte Count 1.61 10^3/uL (1.2-3.4); Absolute Monocyte Count 0.53 10^3/uL (0.1-0.8); Absolute Neutrophil Count 5.69 10^3/uL (1.2-6.7); Basophils % 0.4; Eosinophils % 2.6; HCT 41.4 % (36.0-46.0); HGB 13.5 g/dL (11.2-15.7); Immature Grans % 0.5; Lymphocytes % 19.9; MCH 28.7 pg (27.0-33.0); MCHC 32.6 % (32.0-36.0); MCV 88 fL (80-95); MPV 8.2 fL (8.0-11.0); Monocytes % 6.5; Neutrophils % 70.1; Platelet Count 220 10^3/uL (130-400); RBC 4.71 10^6/uL (3.93-5.22); RDW 13.2 % (11.7-14.6); WBC 8.11 10^3/uL (4.4-10.8)
[2022-07-07 12:29] LABS: ALT 20 U/L (14-59); AST 17 U/L (15-37); Alkaline Phosphatase 104 U/L (46-116); Anion Gap 7.2 mmol/L (3-11); BUN 12 mg/dL (7-18); Bilirubin, Total 0.4 mg/dL (0.2-1.0); CO2 31.8 mmol/L (21.0-32.0); CREATININE 0.9 mg/dL (0.55-1.02); Calcium 9.8 mg/dL (8.5-10.1); Chloride 101 mmol/L (98-107); Estimated GFR 65.44 (mL/min/1.73m2); Glucose 99 mg/dL (74-106); Lipase 25 U/L (16-77); Magnesium 2.1 mg/dL (1.8-2.4); Potassium 3.7 mmol/L (3.5-5.1); Sodium 140 mmol/L (136-145); Troponin I < 50 ng/L (<or=60)
[2022-07-07 12:38] LABS: INR 0.9 (0.9-1.1); PTT Activated 25.1 sec (21.5-31.9); Prothrombin Time 9.3 sec (9.3-11.0)
[2022-07-07 12:46] LABS: D-Dimer 6127 ng/mlFEU (<500)
--- NOTE | 2022-07-07 13:15 | DI.CT_ITS ---
Exam(s) CT CHEST PE CTA EXAM: CT CHEST PE CTA CLINICAL HISTORY: chest pain, elevted d dimer. TECHNIQUE: Imaging Protocol: Axial CT angiography was performed with multi-slice acquisition and mu lti-planar reconstructions as well as axial, coronal and sagittal MIP reconstructions. CONTRAST MATERIAL: Intravenous: Omnipaque 350 Contrast volume:100 ml COMPARISON: CT CT CHEST PE CTA from 05/25/2020 FINDINGS: Pulmonary Arteries: No evidence of filling defect to suggest pulmonary emboli. Tracheobronchial tree: Patent where visualized. Mediastinum and Mariana: No dominant adenopathy or fluid collection. Pulmonary parenchyma: No consolidation or dominant measurable mass. Mild respiratory motion and depen dent changes. Pleura: No effusion or pneumothorax. Heart: The heart is mildly dilated. Coronary artery calcifications are seen. Aorta: Thoracic aorta non-dilated. No aneurysm. No dissection. Atherosclerotic changes. Stents in abdominal aorta, celiac axis and SMA. Upper abdomen: Small hiatal hernia. Stable liver cysts. No further follow-up indicated. Bones: Degenerative changes. No compression fractures. Tubes, Catheters, and Lines: None IMPRESSION: No evidence of pulmonary embolism. No acute lung findings. No evidence of aortic dissection. Findings called to Dr. Severiano Dixon emergency department provider. RADIATION DOSE DELIVERED: 433.81mGy.cm Total DLP DATA REPOSITORY: All CT scans at this facility are submitted to the National Radiology Data Registry (NRDR) Dose Index Registry (DIR) with the [employer] (ACR). RADIATION OPTIMIZATION: All CT scans at this facility use at least one of these dose optimization te chniques: automated exposure control; mA and/or kV adjustment per patient size (includes targeted exa ms where dose is matched to clinical indication); or iterative reconstruction.
[2022-07-07] MEDS: Normal Saline Flush 10 ML SYR IVP (13:33)
[2022-07-07] MEDS: Omnipaque 350 MG/ML 500 ML BTL-Imaging package IJ (13:34)
[2022-07-07 15:19] LABS: Troponin I < 50 ng/L (<or=60)
== END 2022-07-07 16:08 | disposition home or self-care (01) ==
PROVIDERS: Emergency Provider Emergency Medicine; PCP Family Medicine
DX: R07.89 Other chest pain (principal); R79.1 Abnormal coagulation profile
CPT/HCPCS: 36415; 71275; 80053; 83690; 93005; 99285; 83735; 84484; 85025; 85379; 85610; 85730; 93010

== ENCOUNTER 2022-09-09 11:15 | Outpatient (CLI) | payer MEDICARE, BC, SELFPAY ==
--- NOTE | 2022-09-09 10:30 | DI.RAD_ITS ---
Exam(s) XR HIP RT COMPLETE AP PELVIS EXAM: XR HIP RT COMPLETE AP PELVIS INDICATION: hip pain. COMPARISON: CR XR HIP LT COMPLETE AP PELVIS from 09/17/2020 CR XR DEXA BONE DENSITY W/WO ADENIKE from 04/08/2022 TECHNIQUE: 2D digital imaging was performed. Three views. FINDINGS: There has been no change in the alignment of the total right hip prosthesis. No suspicious bony luce ncies are seen. There are mild degenerative changes of left hip. Vascular stents metallic coils are noted. IMPRESSION: Stable appearance of hip prosthesis. DATA REPOSITORY: RADIATION DOSE DELIVERED:
== END 2022-09-09 11:16 | disposition home or self-care (01) ==
LOC: DIORS 11:15
PROVIDERS: PCP Family Medicine; Referring Provider Family Medicine; Visit Provider Student in an Organized Health Care Education/Training Program
DX: Z96.641 Presence of right artificial hip joint (principal); M25.551 Pain in right hip; G89.29 Other chronic pain
CPT/HCPCS: 99214; 73502

== ENCOUNTER 2022-09-30 00:19 | Outpatient (CLI) | payer MEDICARE, BC, SELFPAY ==
--- NOTE | 2022-09-30 07:45 | DI.NM_ITS ---
Exam(s) NM BONE SCAN 3 PHASE EXAM: NM BONE SCAN 3 PHASE CLINICAL HISTORY: pain, ? loosening,m25.551,[id number]. TECHNIQUE: Injected Dose: 25.4 mCi Tc-99m MDP COMPARISON: CR XR HIP RT COMPLETE AP PELVIS from 09/09/2022 FINDINGS: Perfusion: Symmetric. Blood Pool: Symmetric. Delayed: No focal area of intense suspicious uptake is seen around the right total hip prosthesis. Th ere are scattered multifocal areas of increased activity in both wrists, both knees and the, consiste nt with degenerative changes.. IMPRESSION: 1. No evidence of loosening of the right hip prosthesis. DATA REPOSITORY:
--- NOTE | 2022-09-30 07:45 | DI.CT_ITS ---
Exam(s) CT LOWER EXTREMITY RT WO EXAM: CT LOWER EXTREMITY RT WO CLINICAL HISTORY: PAIN, ?LOOSENING,m25.551,[id number]. TECHNIQUE: Imaging Protocol: Axial computed tomography images with coronal and sagittal reformatted images were created and reviewed. CONTRAST MATERIAL: Intravenous: Omnipaque 350 Contrast volume:structured data in ml Contrast route:IV - COMPARISON: CT CTA ABDOMEN from 11/23/[address] CHEST PE CTA from 05/25/2020 CR XR HIP LT COMPLETE AP PELVIS from 09/17/[address] CHEST PE CTA from 07/07/2022 CR XR HIP RT COMPLETE AP PELVIS from 09/09/2022 FINDINGS: Bones: There is a right total hip prosthesis. There is motion artifact at the level of the tip of th e femoral component of the prosthesis. There are no abnormal surrounding bony lucencies. There is n o evidence of fracture or dislocation. No cellulitic or osteomyelitic changes are identified. No l ytic or sclerotic lesions are identified. Soft Tissues: Normal. Bilateral iliac artery stents. Right posterior pelvic metallic coils. 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 It is partially obscur ed by artifact from adjacent metallic coils. This is not included in the field of view of the previo us exams available. Sigmoid diverticulosis. IMPRESSION: No findings to suggest loosening of the total hip prosthesis. 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 Unexpected findings RADIATION DOSE DELIVERED: 403.82mGy.cm Total DLP DATA REPOSITORY: All CT scans at this facility are submitted to the National Radiology Data Registry (NRDR) Dose Index Registry (DIR) with the [employer] (ACR). RADIATION OPTIMIZATION: All CT scans at this facility use at least one of these dose optimization te chniques: automated exposure control; mA and/or kV adjustment per patient size (includes targeted exa ms where dose is matched to clinical indication); or iterative reconstruction.
== END 2022-09-30 00:39 ==
LOC: DI 00:20
PROVIDERS: PCP Family Medicine; Visit Provider Student in an Organized Health Care Education/Training Program
DX: M25.551 Pain in right hip; Z96.641 Presence of right artificial hip joint; I72.3 Aneurysm of iliac artery; Z98.890 Other specified postprocedural states
CPT/HCPCS: 73700; 78315

== ENCOUNTER 2022-10-10 04:52 | Outpatient (CLI) | payer MEDICARE, BC, SELFPAY ==
[2022-10-10 14:55] LABS: HCT 38.2 % (36.0-46.0); HGB 12.3 g/dL (11.2-15.7); MCHC 32.2 % (32.0-36.0); MCV 87 fL (80-95); MPV 8.4 fL (8.0-11.0); Platelet Count 192 10^3/uL (130-400); RDW 13.2 % (11.7-14.6); RDW-SD 41.7 fL; WBC 7.62 10^3/uL (4.4-10.8)
[2022-10-10 15:53] LABS: ALT 24 U/L (14-59); AST 14 U/L (15-37); Albumin 3.7 g/dL (3.4-5.0); Alkaline Phosphatase 86 U/L (46-116); Anion Gap 6.5 mmol/L (3-11); BUN 17 mg/dL (7-18); Bilirubin, Total 0.3 mg/dL (0.2-1.0); CO2 30.5 mmol/L (21.0-32.0); CREATININE 1.2 mg/dL (0.55-1.02); Calcium 9.5 mg/dL (8.5-10.1); Calculated LDL 125 mg/dL (<100); Chloride 102 mmol/L (98-107); Cholesterol 226 mg/dL (<200); Estimated GFR 46.33 (mL/min/1.73m2); Glucose 99 mg/dL (74-106); HDL Cholesterol 70 mg/dL (40-60); Sodium 139 mmol/L (136-145); Total Protein 7.2 g/dL (6.4-8.2); Triglyceride 158 mg/dL (<150); Vitamin B12 1000 pg/mL (193-986)
== END 2022-10-10 04:53 | disposition home or self-care (01) ==
LOC: LBO 04:52
PROVIDERS: PCP Family Medicine; Visit Provider Student in an Organized Health Care Education/Training Program
DX: M25.551 Pain in right hip (principal); G89.29 Other chronic pain; Z96.641 Presence of right artificial hip joint; E78.5 Hyperlipidemia, unspecified; I10 Essential (primary) hypertension; D64.9 Anemia, unspecified; I25.10 Atherosclerotic heart disease of native coronary artery without angina pectoris; Z79.899 Other long term (current) drug therapy; Z01.818 Encounter for other preprocedural examination; Z01.812 Encounter for preprocedural laboratory examination
CPT/HCPCS: 36415; 80053; 80061; 85027; 86850; 86900; 86901; 82607

== ENCOUNTER 2022-10-12 11:41 | Inpatient (IN) | payer MEDICARE, BC, SELFPAY ==
[2022-10-12] VITALS (10 sets, daily range): BP systolic 145–166; BP diastolic 54–84; PULSE 62–75; RESP 14–18; TEMP 35.7–36.6; O2SAT 95–97; BMI 28.8
--- NOTE | 2022-10-12 12:45 | DI.RAD_ITS ---
Exam(s) XR HIP RT IN OR EXAM: XR HIP RT IN OR CLINICAL HISTORY: Chronic hip pain after total replacement of right. TECHNIQUE: 2D digital imaging was performed. COMPARISON: No exams were available for comparison FINDINGS: Fluoroscopy was provided during right hip arthroplasty. See procedure report for details. Radiation exposure index/cumulative dose:Ka.r= 3 0.0300 mGy IMPRESSION: DATA REPOSITORY: RADIATION DOSE DELIVERED:
[2022-10-12] MEDS: Acetaminophen 500 MG TAB 1000 MG PO ×2 (12:48→19:43)
[2022-10-12] MEDS: Celecoxib 200 MG CAP 400 MG PO (12:49)
--- NOTE | 2022-10-12 12:56 | W.ANESPRE ---
General Info Date of Service Date Performed: 10/12/22 Height: 5 ft 5 in Weight: 78.4 kg Body Mass Index (BMI): 28.8 Surgical Procedure: Operation Date: 10/12/22 15:35 Proposed Procedure Side Surgeon p Acetabular Revision Right Sp Breaux MD Meds Allergies and Home Medications Allergies Allergy/AdvReac Type Severity Reaction Status Date / Time levofloxacin [From Levaquin] Allergy Intermediate hives Verified 10/12/22 12:30 lactase Allergy Mild Other (See Verified 10/12/22 12:30 Comment) Sulfa (Sulfonamide Allergy Mild Nausea, Verified 10/12/22 12:30 Antibiotics) sick feeling wheat Allergy Mild causes Verified 10/12/22 12:30 congestion Tetracyclines Allergy Unknown Verified 10/12/22 12:30 atorvastatin calcium AdvReac Intermediate joint aches Verified 10/12/22 12:30 [From Lipitor] fluvastatin sodium AdvReac Intermediate joint aches Verified 10/12/22 12:30 [From Lescol] oxycodone AdvReac Intermediate Nausea Verified 10/12/22 12:30 simvastatin [From Zocor] AdvReac Intermediate joint aches Verified 10/12/22 12:30 lactose AdvReac Mild mucus Verified 10/11/22 13:15 build up in throat pravastatin AdvReac Mild THUMB PAIN Verified 09/09/22 10:36 Home Medication Medication Instructions Recorded magnesium 250 mg tablet 250 mg PO PRN PRN 07/14/16 potassium gluconate 600 mg (99 mg) 600 mg PO PRN PRN 07/14/16 tablet meclizine 25 mg tablet 25 mg PO DAILY PRN motion sickness 09/16/20 #10 tabs albuterol sulfate 90 mcg/actuation 2 puff inhalation QID PRN 03/14/22 aerosol inhaler (ProAir HFA) shortness of breath or wheezing ##1 hydrochlorothiazide 25 mg tablet 25 mg PO DAILY #90 tabs 03/14/22 rosuvastatin 5 mg tablet (Crestor) 5 mg PO HS #90 tab-caps 03/14/22 venlafaxine 37.5 mg 37.5 mg PO DAILY #90 caps 03/14/22 capsule,extended release 24 hr (Effexor XR) aspirin 81 mg chewable tablet 81 mg PO DAILY 04/04/22 inhalational spacing device #1 ea 07/18/22 (BreatheRite MDI Spacer) fluticasone propionate 50 1 spray intranasal BID PRN nasal 08/08/22 mcg/actuation nasal congestion #16 grams spray,suspension (Allergy Relief (fluticasone)) omeprazole 20 mg capsule,delayed 20 mg PO DAILY PRN GERD #90 caps 09/20/22 release multivitamin 1 tab PO DAILY 10/10/22 diphenhydramine HCl 25 mg tablet mg 10/12/22 (Allergy) Current Visit Medications: Current Medications Generic Name Dose Route Start Last Admin Trade Name Freq PRN Reason Stop Dose Admin Acetaminophen 1,000 mg 10/12/22 06:00 10/12/22 12:48 Acetaminophen 500 Mg Tab PO 10/12/22 16:00 1,000 mg PREOP TAMERA Administration Celecoxib 400 mg 10/12/22 06:00 10/12/22 12:49 Celecoxib 200 Mg Cap PO 10/12/22 16:00 400 mg PREOP TAMERA Administration Ringer's Solution 1,000 mls @ 80 mls/hr 10/12/22 06:00 IV 11/10/22 23:59 INFUSION TAMERA Cefazolin Sodium/Dextrose 2 gm in 50 mls @ 100 mls/hr 10/12/22 06:00 Ancef Duplex IVPB 11/10/22 23:59 PREOP TAMERA IV Miscellaneous Supplies 1 each 10/12/22 06:00 Iv Access IV 11/10/22 23:59 DIRECTED TAMERA Sodium Chloride 0 ml 10/12/22 06:00 Normal Saline Flush 10 Ml Syr IV 11/10/22 23:59 PRN PRN Sodium Chloride 0 ml 10/12/22 06:00 Normal Saline 10 Ml Vial IJ 11/10/22 23:59 DIRECTED PRN Sterile Water 0 ml 10/12/22 06:00 Water,Injection,Sterile 10 Ml Vial IJ 11/10/22 23:59 DIRECTED PRN PFSH Active Problems Active Problems: Problem Status Onset Code AAA Actinic keratosis of right lutheran 10/04/17 L57.0 Coronary artery calcification seen on CT scan 06/01/15 I25.10 Depressive disorder F32.9 Gastroesophageal reflux disease K21.9 Hiatal hernia K44.9 Hyperlipidemia 03/30/04 E78.5 Increased BMI (body mass index) 02/22/17 R63.8 Essential hypertension I10 Viral wart B07.9 White coat syndrome with diagnosis of hypertension I10 Renal artery stenosis I70.1 Anemia D64.9 Post-nasal drip R09.82 Globus sensation R09.89 Hemorrhoids K64.9 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.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, G89.29, Z96.641 Medical History Medical History Acute pain of left knee (08/30/17) Bronchitis Bunion of great toe (01/17/14) right great toe (seven surg and revisions) 03/12 [facility] recommend non surgical tx Cataract Chronic right shoulder pain (10/04/17) Constipation Elevated BP without diagnosis of hypertension History of stent insertion of renal artery 08/2019 Impacted cerumen, bilateral Pneumonia of right lung due to infectious organism (03/20/15) Right hip pain (05/06/14) h/o trochanteric bursitis DJD Solar lentigo URI (upper respiratory infection) Viral wart on cheek Surgical History Surgical History Biopsy of breast RIGHT Colonoscopy - IV Sedation (~03/2012) [facility] Extraction of cataract 05/29/14; left and right HERNIA REPAIR (~03/2002) EPIGASTRIC Total 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 KENDRICK Tobacco Smoking/Tobacco Use Status: Former Tobacco Use Passive smoking exposure: Yes Second hand exposure: Yes Alcohol Alcohol Intake: never Substance Use Substance use: Never Counseling provided: none Vital Signs and Lab Results Vital Signs Most Recent Vital Signs in EMR: Most Recent Vital Signs Temp Pulse Resp BP Pulse Ox 36.2 C L 75 18 145/78 H 96 10/12/22 12:38 10/12/22 12:38 10/12/22 12:38 10/12/22 12:38 10/12/22 12:38 Lab Results Blood Type / Crossmatch: Patient ABO/Rh O Positive 10/10/22 Antibody Screen NEGATIVE 10/10/22 Complete Blood Count: White Blood Count 7.62 10^3/uL (4.4-10.8) 10/10/22 14:43 Red Blood Count 4.40 10^6/uL (3.93-5.22) 10/10/22 14:43 Hemoglobin 12.3 g/dL (11.2-15.7) 10/10/22 14:43 Hematocrit 38.2 % (36.0-46.0) 10/10/22 14:43 Platelet Count 192 10^3/uL (130-400) 10/10/22 14:43 Complete Metabolic Panel: Sodium 139 mmol/L (136-145) 10/10/22 14:43 Potassium 4.0 mmol/L (3.5-5.1) 10/10/22 14:43 Chloride 102 mmol/L (98-107) 10/10/22 14:43 Carbon Dioxide 30.5 mmol/L (21.0-32.0) 10/10/22 14:43 BUN 17 mg/dL (7-18) 10/10/22 14:43 Creatinine 1.2 mg/dL (0.55-1.02) H 10/10/22 14:43 Est GFR (CKD-EPI 2020) 46.33 (mL/min/1.73m2) 10/10/22 14:43 Calcium 9.5 mg/dL (8.5-10.1) 10/10/22 14:43 Albumin 3.7 g/dL (3.4-5.0) 10/10/22 14:43 Glucose 99 mg/dL (74-106) 10/10/22 14:43 Liver Function Panel: Alanine Aminotransferase (ALT/SGPT) 24 U/L (14-59) 10/10/22 14:43 Coagulation Panel: No Data to Display Cardiac Panel: No Data to Display Arterial Blood Gas: No Data to Display Venous Blood Gas: No Data to Display Pancreas Panel: No Data to Display Thyroid Panel: No Data to Display Infectious Disease: No Data to Display Blood Cultures: No Data to Display Toxicology Panel: No Data to Display Imaging and Studies Imaging and Studies Study information below may be from another EMR and interpreted by another provider. Please see original notes in EMR for more complete details. EKG Summary: EKG PATIENT NAME: Eryn Robbins #: [id number] ORDERING PROVIDER: Severiano Darby M.D. PRIMARY CARE PROVIDER:GIANLUCA VALENZUELA MD, DC DATE/TIME OF SERVICE: 07/07/22 1153 : 1945PERFORMING LOCATION: ER APPROVED REPORT Exam: Resting ECG Reason for Exam: chest pain Patient Location: E HR:70 bpm ECG Measurements Heart Rate 70 AXIS AR 160 P 67 QRSd 79 QRS -46 QT 390 T46 QTc 422 Conclusion Sinus rhythm...normal P axis, V-rate 60- 99 Left anterior fascicular block...axis(240,-40), init forces inf Left ventricular hypertrophy...multiple voltage criteria no stemi <Electronically signed by SEVERIANO DARBY MD in OV> E-Sign Date: 07/07/22 E-Sign Time: 1200 ADDENDUM APPROVED REPORT Exam: Resting ECG Reason for Exam: chest pain Patient Location: E HR:70 bpm ECG Measurements Heart Rate 70 AXIS AR 160 P 67 QRSd 79 QRS -46 QT 390 T46 QTc 422 Conclusion Sinus rhythm...normal P axis, V-rate 60- 99 Left anterior fascicular block...axis(240,-40), init forces inf Left ventricular hypertrophy...multiple voltage criteria no stemi I have reviewed and I agree with the emergency room physician's ECG interpretation. Electronically signed by: <Electronically signed by Elena Palencia M.D. in OV> 07/07/22 1210 Cosigned by Stress Test Summary: STRESS TEST PATIENT NAME: ERYN ROBBINS RUNIT #: [id number] ADMITTING PROVIDER: JAMEE MCKEON,PhD,[facility] #: [id number] PRIMARY CARE PROVIDER:Citlaly Coleman NPDATE OF SERVICE: 12/28/16 : 1945 *[facility]* *[facility]* [address] [place] [address] Stress Electrocardiography Sergey protocol Date of study: 12/28/2016 *PATIENT PRESENTATION* Height: 165.1cm (65in) Blood Pressure: Weight: 82.3kg (181lb) BSA: 1.97m^2 Ordering physician: Citlaly Coleman Impressions: Normal study after maximal exercise. Summary: 1. Stress ECG conclusions: The stress ECG is negative. Mark treadmill score: 6. This score predicts a low risk of cardiac events. 2. Stress: The target heart rate was achieved. The heart rate response to stress is normal. There is resting hypertension with an appropriate response to stress. The patient experienced no chest pain during stress. Exercise capacity is above normal for age. Indication: I25.10. History: REASON FOR VISIT: PER PATIENT REPORT, STRESS TEST TODAY WAS ORDERED BY DR. BAL GREEN FROM [facility] VASCULAR SURGERY BECAUSE OF HER DISTAL ABDOMINAL AORTIC ANEURYSM WHICH SHE STATES MEASURES AT 4.[address] GREEN WANTED THIS TEST COMPLETED PRIOR TO HER NEXT APPOINTMENT IN MARCH. PT DENIES EVER EXPERIENCING CHEST PAINS OR PRESSURE. SHE DOES REPORT HAVING GASTRIC REFLUX AND A HIATAL HERNIA THAT WAS SURGICALY REPAIRED TWICE. PT DOES NOT EXERCISE REGULARLY. Risk factors: Family history of coronary artery disease. Hypertension. Obesity. Dyslipidemia. Cholesterol: 234mg/dl. HDL: 76mg/dl. LDL: 147mg/dl. Triglycerides: 84mg/dl. ALLERGIES: AMOXICILLIN. LEVOFLOXACIN. SULFA. TETRACYCLINES. EGG. LACTASE. WHEAT. ATORVASTATIN CALCIUM. FLUVASTATIN SODIUM. OXYCODONE. SIMVASTATIN. LACTOSE. PRAVASTATIN. MEDICATIONS: LISINOPRIL 5 MG DAILY. ASPIRIN 81 MG BID. CHOLECALCIFEROL 1,000 UNITS DAILY. MAGNESIUM 250 MG PRN. POTASSIUM GLUCONATE 600 MG PRN. ALBUTEROL SULFATE MDI PRN. VENLAFAXNE HCL 37.5 MG. OMEPRAZOLE 20 MG DAILY. OMEGA-3 500 SOFTGEL ONE DAILY. NEGAR MULTIVIT FOR WOMEN 1 TAB DAILY. ROSUVASTATIN CALCUM 5 MG EVERY HS. SALMON OIL 1,000 MG SOFTGEL BID PRN. Protocol: Sergey protocol. Baseline ECG: SINUS RHYTHM. HR 67 BPM. Normal ECG. Stress protocol: + +---+ + !Stage !HR !BP (mmHg) ! + +---+ + !Baseline supine !67 !158/78 (105)! + +---+ + !Baseline standing !85 !150/80 (103)! + +---+ + !Stage I; 1.7mph, 10degrees; 3 min !107!165/82 (110)! + +---+ + !Stage II; 2.5mph, 12degrees; 3 min!138!178/80 (113)! + +---+ + !Peak stress !143! ! + +---+ + !Immediate post stress !113! ! + +---+ + !Recovery; 1 min !113!184/78 (113)! + +---+ + !Recovery; 3 min !96 !182/80 (114)! + +---+ + !Recovery; 6 min !80 !160/80 (107)! + +---+ + !Recovery; 9 min !78 !152/78 (103)! + +---+ + * Stress results: Maximal heart rate during stress was 143bpm (97% of maximal predicted heart rate). The maximal predicted heart rate was 148bpm. The target heart rate was achieved. The heart rate response to stress is normal. There is resting hypertension with an appropriate response to stress. The rate-pressure product for the peak heart rate and blood pressure was 61378yj Hg/min. The patient experienced no chest pain during stress. Exercise capacity is above normal for age. Stress ECG: TREADMILL PORTION OF STRESS TEST ENDED IN 6 MINUTES & 1 SECOND BECAUSE OF PATIENT'S SHORTNESS OF BREATH. NORMAL HEART RATE AND BLOOD PRESSURE RESPONSE TO EXERCISE. MAX HR = 143. % OF TARGET = 96. APPROXIMATE METS ACHIEVED = 7:05 NO ECTOPY NO ANGINA NO SIGNIFICANT ST CHANGES. ABOVE AVERAGE FUNCTIONAL CAPACITY FOR EXERCISE. The stress ECG is negative. Mark treadmill score: 6. This score predicts a low risk of cardiac events. Study data: Anibal Shrestha MD supervised and was readily available during the procedure. This study was interpreted by [facility]. Study status: Routine. Consent: The risks, benefits, and alternatives to the procedure were explained to the patient and informed consent was obtained. Procedure: Initial setup. A baseline ECG was recorded. Surface ECG leads and manual cuff blood pressure measurements were monitored. Heart sounds: Normal. Lung sounds: Normal. Treadmill exercise testing was performed using the Sergey protocol. Study completion: The patient tolerated the procedure well and was discharged from the lab. Discharge: The patient left the laboratory in stable condition. Birthdate: Patient birthdate: 1945. Sex: Gender: female. Study date: Study date: 12/28/2016. Study time: 08:15 AM. Signature Documentation: The Stress ECG portion of this study was interpreted by Anibal Shrestha MD. Electronically signed by Anibal Shrestha 12/28/2016 11:38 Dictated by: JAMEE MCKEON,PhD,ANIBAL Dictated:: [id number] Transcribed Date: Transcribed Time: By: JAMARI This is privileged, confidential information, intended only for the provider named. Any use or distribution by any person other than this provider is strictly prohibited. If you receive this report in error, please notify us immediately at [phone] and return the original report to us at the address above. Thank you. Anesthesia Assessment and Plan Anesthesia History Personal History: No History of Anesthesia Complications Family History: No Family History of Anesthesia Complications Exercise Tolerance Exercise Tolerance: Metabolic Equivalents>4 Cardiac & Pulmonary Exam Cardiac Exam: Normal S1/S2 Heart Sounds Pulmonary Exam: Clear Bilateral Breath Sounds Implantable Cardiac Device Does patient have a Pacemaker or an ICD?: No Airway Exam Known Difficult Airway: Yes Mallampati Class: 3 Mouth Opening: Normal (> 3cm) Thyromental Distance: Greater than 3 cm Neck Range of Motion: Full ROM Neck Circumference: Normal Teeth Condition: Normal Dentition ASA Classification ASA Score: ASA 3 Emergency Case?: No NPO Status NPO Status: NPO Clears >2 hours, Solids >8 hours Anesthesia Plan Resuscitation Status: Full Code Anesthesia Technique: Spinal Anesthesia Airway Planned: Natural Airway Monitors Used: Standard Monitors
[2022-10-12] MEDS: Lactated Ringers 1,000 ML 80 ML IV (13:00)
--- NOTE | 2022-10-12 13:27 | PDOC.DSDIS_ITS ---
Date of service: 10/12/22 Time of Service: 13:27 Discharge Plan Disposition Patient Disposition: Home Condition: Good Discharge Details Reason For Visit: R THR revision acetabulum Admit Date/Time: 10/12/22 11:41 Admit Provider: Sp Breaux Attending Provider: Sp Breaux Primary Care Provider: Vickie Adams Home Meds and New Rx's Prescriptions: No Action meclizine 25 mg tablet 25 mg PO DAILY PRN (Reason: motion sickness) Qty: 10 0RF Rx Instructions: may take one tab daily for vertigo symptoms aspirin 81 mg tablet,chewable 81 mg PO DAILY (DME) BreatheRite MDI Spacer Spacer See Rx Instructions .Route Qty: 1 0RF Rx Instructions: As directed multivitamin Tablet 1 tab PO DAILY albuterol sulfate [ProAir HFA] 90 mcg/actuation HFA aerosol inhaler 2 puff Inhalation QID PRN (Reason: shortness of breath or wheezing) Qty: 1 2RF hydrochlorothiazide 25 mg tablet 25 mg PO DAILY Qty: 90 3RF rosuvastatin [Crestor] 5 mg tablet 5 mg PO HS Qty: 90 3RF Rx Instructions: for cholesterol venlafaxine [Effexor XR] 37.5 mg capsule,extended release 24hr 37.5 mg PO DAILY Qty: 90 4RF fluticasone propionate [Allergy Relief (fluticasone)] 50 mcg/actuation spray,suspension 1 spray intranasal BID PRN (Reason: nasal congestion) Qty: 16 3RF omeprazole 20 mg capsule,delayed release(DR/EC) 20 mg PO DAILY PRN (Reason: GERD) Qty: 90 5RF Rx Instructions: Take in the evening, 2 hours from last food. magnesium 250 MG tablet 250 mg PO PRN PRN potassium gluconate 600 MG tablet 600 mg PO PRN PRN Patient Comments: 07/14/16 per pt uses for leg cramps. diphenhydramine HCl [Allergy] 25 mg Tablet Patient Comments: pt. reports taking a generic allergy pill, 5 mg Discharge Instructions Additional Instructions: Total Hip Discharge Instructions Activity: The most important activity is to walk. You should try to take short walks a few times a day. You have no restrictions on movement or positioning, but do not try to force what you do. You will find some stiffness and weakness with hip flexion (lifting your knee). Do not try to strengthen this too early, continue to practice walking and stairs and this will come. - Outpatient physical therapy can be helpful to help return you to a normal gait and improve your flexibility and strength. This can start around 2 weeks. For some patients, it?s not necessary. Usually this is determined at the time of discharge or at the first post-operative visit. - You should wear the SINCERE hose on both legs for 2 weeks. Dressing: Keep the surgical dressing in place for at least one week. After the first week it may be removed and replace with light gauze and tape or nothing. It may get wet after 3 days but avoid soaking the dressing. If it gets wet, just lightly pat dry. It is important to always keep some gauze between skin f olds, especially when you are sitting. Spend some time with the wound exposed when you are lying flat as the incision does wrinkle onto itself. Medications: - You should take Tylenol and an anti-inflammatory [Celebrex] as your primary pain control medications. If the Celebrex is too expensive or not covered, please call the office for another alternative (Advil/Ibuprofen or Naproxen/Aleve). - You have been prescribed a stronger pain medication [Tramadol] for breakthrough pain, take as needed as prescribed. - You will continue your omepazole to help reduce stomach acid and reflux. [- You have also been prescribed Decadron to help with post-operative nausea and pain. You will take this for two days starting tomorrow.] - You will be taking [Aspirin 81mg twice a day] for DVT prevention unless instructed otherwise. - If you have constipation you should take Colace or Miralax (both [id number]-qvt-syofyer). It takes most people 3-4 days to have a bowel movement. Follow-up: 2 weeks If you have any acute concerns or questions, please do not hesitate to contact the office at [phone]. You may contact Dr. Breaux with any questions after hours through the hospital at [phone] or on his cell phone at [phone]. Referrals: Sp Breaux MD [ [facility] STAFF PHYSICIAN] - Activity:: Activity as Tolerated Equipment/Supplies:: Walker Diet:: As Tolerated DS: Diagnosis Discharge Diagnosis (1) Chronic hip pain after total replacement of right hip joint: Status: Acute
[2022-10-12] MEDS: ceFAZolin 2 GM/50 ML BAG IVPB (14:16)
[2022-10-12] MEDS: Tranexamic Acid 1,000 MG/10 ML VIAL 1000 MG (14:37)
--- NOTE | 2022-10-12 16:24 | W.ANESPOSTOP ---
Postoperative Evaluation Date, Time and Location Date Performed: 10/12/22 Time Performed: 16:24 Patient Location: PACU Vital Signs Most Recent Imported Vital Signs: Most Recent Vital Signs Temp Pulse Resp BP Pulse Ox 36.2 C L 75 18 145/78 H 96 10/12/22 12:38 10/12/22 12:38 10/12/22 12:38 10/12/22 12:38 10/12/22 12:38 Pain Score Most Recent Pain Score: Most Recent Pain Score Pain Level 1 10/12/22 12:38 Assessment Mental Status: Awake (Alert & Oriented to Patient Baseline) Airway and Respiratory Function: Patent airway with normal (patient baseline) respiratory exam Cardiovascular Function: Hemodynamically Stable Hydration Status: Adequately Hydrated Nausea & Vomiting: No Nausea or Vomiting Pain: Pt. Denies Any Pain Peripheral Nerve Block: Patient did not receive a nerve block
--- NOTE | 2022-10-12 17:32 | PT.INNT ---
PT Notes Visit Reasons: Painful R THR Patient still unable to feel toes. Will recheck first thing tomorrow morning for PT evaluation.
[2022-10-12] MEDS: ceFAZolin 1 GM/50 ML BAG IVPB (18:29)
[2022-10-12] MEDS: Celecoxib 200 MG CAP PO (19:43)
[2022-10-12] MEDS: Aspirin E.C. 81 MG TABEC PO (19:43)
[2022-10-12] MEDS: hydroCHLOROthiazide 12.5 MG TAB PO (19:45)
--- NOTE | 2022-10-12 22:29 | W.PM.OP ---
Date of service: 10/12/22 Time of Service: 16:05 Operative Note Operative Note DATE OF PROCEDURE: 10/12/22 PRE-OP DIAGNOSIS: Painful Right hip replacement POST-OP DIAGNOSIS: same PROCEDURE: Acetabular Revision - Right Hip SURGEON: Sp Breaux BUSINESS ADVISOR: Roby Wilson ANESTHESIA TYPE: Spinal Refer to Anesthesia Record ESTIMATED BLOOD LOSS: 200 PATHOLOGY: none sent TOURNIQUET TIME: 0 COMPLICATIONS: None Patient was transported to: PACU Patient's condition: stable Implants: Grace and Nephew 54mm Redapt Acetabular Component Grace and Nephew [id number] Dual Mobility Liner Grace and Nephew [id number] Dual Mobility Polyethylene Depuy 28+1.5mm Altrx Ceramic Head with Titatinium Sleeve Indications: Leslie is a 77 year old female who has had persistent anterior groin pain following ihp replacement. CT scan demonstrated a retroverted acetabulum. Given the malpositioning and the ongoing anterior pain, I offered an acetabular revision. I reviewed the technical details of the case. I discussed the risks to include bleeding, infection, pain, stiffness, instability, weakness, damage to nerves and vessels, damage to muscles and tendons, fracture, blood clot, vascular compromise. Despite these risks, she elected to proceed. Findings: There was a significantly retroverted acetabular component with extensive anterior exposure of the anterior acetabulum. There was irritated and partial tearing of the iliopsoas and anterior soft tissues. A dual mobility acetabular component was placed and iliopsoas was released. Procedure Description: Leslie was greeted in the preoperative holding area where the correct side was identified and marked. The consent was reviewed with the patient and signed. The history and physical was updated. All questions were answered. She was taken back to the operating room. A spinal anesthestic was then administered. The feet were wrapped with cast padding and Coban and then placed into the boot liners and then into the boots. Care was taken to protect the skin and make sure the heels were fully down and the boots were stable. The patient was then positioned onto the HANA table. Both legs were held in a neutral position. SCDs were applied. The patient was then slid down onto a peroneal post. Prophylactic antibiotics in the form of Cefazolin were administered. 1g of Tranxemic Acid was given intravenously within 30 minutes of incision. The right leg was then prepped with Chloraprep and draped in a standard fashion. A second prep with Chloraprep was performed prior to placement of a shower-curtain type drape with Iodine impregnated skin protection. A timeout to confirm correct identity, side and site, procedure, allergies, anesthesia, and medical concerns was performed. An obliquely oriented incision was made starting lateral to the ASIS and running distal over the Tensor Fascia Marii (TFL) muscle belly toward the fibular head, approximately 10cm. The skin and soft tissue was dissected sharply, through Calos?s fascia, and to the fascia of the TFL. With the fascia and superior border of the IT band identified, the fascia was incised with a new knife just above any perforators from the IT band. The TFL muscle belly was bluntly dissected away from the fascia and moved laterally. The fat between TFL and rectus was identified to ensure the dissection was not within the TFL. Blunt dissection created space between abductors and the capsule and retractor was placed over the lateral femoral neck. The fibers of the rectus femoris tendon were identified and these were freed from the anterior capsule. A second cobra retractor was placed around the remnant medial femoral neck. The TFL was further retracted laterally to show the deep fascia. Careful dissection through this layer identified three main crossing vessels of the lateral femoral circumflex. These were cauterized in multiple locations and then cut without any noticeable bleeding. The TFL was further released bluntly from the deep fascia to expose anterior hip capsule and fat The Rojelio orthopaedic retractor was then placed beneath the TFL and against sartorius and medial soft tissues to protect and retract the soft tissues. A T-capsulotomy was then performed starting at the superior lateral acetabulum and moving distally to the intertrochanteric ridge. These capsular flaps were tagged with a No. 1 Ethibond and elevated from within. The capsular flaps were released to the shoulder of the lateral neck and to the lesser trochanter to give excellent visualization of the proximal femur. There was notable synovitis seen within the hip. This is also very present anteriorly where there also seem to be some stranding and fraying of the iliopsoas tendon. The leg was externally rotated and dislocated. The ceramic head was disimpacted from the trunnion and removed. This now gave excellent visualization of the hip joint itself. The femur was kept slightly posterior. I then performed a synovectomy/is able to clearly define the acetabular component borders. I also removed excess soft tissue which was quite abundant medially and anteriorly. I continued the capsule release anteriorly and then also released the iliopsoas tendon given that it had signs of chronic changes and she had chronic pain in this region. Synovectomy was completed posteriorly as well both with electrocautery and with a rongeur. There is no signs of gross loosening of the femoral stem or the cup. However, the cup was in significant mount of retroversion, at least 20 degrees, with a large amount of exposed acetabular shell. Using an osteotome, I was able to remove the acetabular shell. 2 screws removed from the cup without difficulty. I then placed the liner back into the acetabular shell a utilized the [employer] cup extractor system. Starting with a short blade I freed up adhesions from the perimeter of the acetabular shell and the acetabulum. The longer blade was then utilized to fully remove bony attachments to the acetabular component. Once this was completed a bone tamp was utilized to free up any last adhesions and the acetabular shell was removed. There is no significant bone loss. There is no fracture. X-rays also utilized to ensure appropriate removal of the acetabular component. Further debridement of any soft tissue was performed to be had excellent visualization of the acetabulum. Attention was then turned to placement of the revision acetabular system. Acetabular reaming began with a 53mm reamer. This was positioned appropriately based on fluoroscopy before reaming ensued. This was taken down to the true floor, advancing 1 mm at most. I then was able to ream with a 54 mm reamer and get into some new bone without expanding the acetabulum too much nor losing anterior posterior núñez. The 54 mm Grace & Nephew redapt cup was then selected. It was opened on the back table. When this was being opened, the deep tissues were injected with a portion of the periarticular cocktail. This cocktail consisted of 123mg of Ropivacaine, 0.25mg of Epinephrine, 0.04mg of Clonidine, and 15mg of Ketorolac, diluted to 50cc. Using fluoroscopic guidance the acetabulum was positioned and impacted. It had good fixation in the bone. 2 screws were placed for extra security of the acetabular component into the bone. The dual mobility Oxinium acetabular shell was then inserted and impacted into position. The dual ability liner as well as the ceramic head, 28+1.5 mm, was also opened. The trunnion was cleaned. The ceramic head was inserted with the insertion device into the dual ability liner. This was then placed onto the clean and dried trunnion utilizing the ceramic head with a titanium sleeve. The hip was then reduced. It was noted to be stable through range of motion. There was maybe 1 to 2 mm of shuck but I was unable to dislocate either anteriorly or posteriorly with manual manipulation of the leg. The deep tissues were then thoroughly irrigated with Surgiphor, betadine solution. This was allowed to sit in the wound for 3 minutes before being thoroughly irrigated out with normal saline. The capsule was then reapproximated with the previously placed Ethibond sutures along with additional #1 Vicryl. The TFL fascia was finally closed with a No. 2 Stratafix, barbed suture. Deep tissues were then reapproximated with 0 Vicryl and a running 2-0 Vicryl. The skin was closed with a running 4-0 Monocryl in a subcuticular fashion. This was reinforced with skin glue. A Mepilex silver dressing was applied. At the end of the case, all counts were correct. Leslie was transferred to the hospital bed without difficulty and suffering no apparent complication. Leslie has a good prognosis. Physical therapy will start today and without restrictions, weight-bearing as tolerated. Aspirin 81mg BID will be used for DVT prophylaxis.
[2022-10-12] MEDS: Rosuvastatin 5 MG TAB PO (22:30)
[2022-10-13] MEDS: ceFAZolin 1 GM/50 ML BAG IVPB (01:25)
[2022-10-13] MEDS: Normal Saline Flush 10 ML SYR IV (01:25)
[2022-10-13 03:23] VITALS: BP 156/70; PULSE 57; RESP 18; TEMP 36.1; O2SAT 96
[2022-10-13 07:00] VITALS: BP 162/76; PULSE 57; RESP 16; TEMP 35.7; O2SAT 95
[2022-10-13] MEDS: Venlafaxine 37.5 MG CAPCR PO (08:34)
[2022-10-13] MEDS: Aspirin E.C. 81 MG TABEC PO (08:35)
[2022-10-13] MEDS: hydroCHLOROthiazide 25 MG TAB PO (08:35)
[2022-10-13] MEDS: Acetaminophen 500 MG TAB 1000 MG PO (08:35)
[2022-10-13] MEDS: Multivitamin TAB 1 TAB PO (08:35)
[2022-10-13] MEDS: Celecoxib 200 MG CAP PO (08:35)
[2022-10-13] MEDS: Dexamethasone 4 MG TAB PO (08:35)
--- NOTE | 2022-10-13 09:06 | INITIAL_ITS ---
Date of service: 10/13/22 Time of Service: 09:06 Care Management Initial Assmt Initial Assessment REASON FOR HOSPITALIZATION:: revision of total hip replacement PREVIOUS FUNCTIONAL STATUS/SOCIAL/FAMILY SUPPORTS:: Leslie lives in a single family home in [place], [place]. She has 2 sons, Eugene and Placido, who live locally and are supportive. She has several grandchildren and 3 great grand children. Leslie is independent at baseline and does not receive any community services. Leslie uses a walker for ambulatory assistance. CURRENT FUNCTIONAL STATUS:: Leslie was dressed and ready for discharge when CM met with her. She appeared to be in good spirits and engaged easily with CM. Leslie shared that she had a wonderful experience at [facility]. She stated I just love this hospital and everyone in it! She also stated that she is pain free for the fi rst time in 5 years. She had had a hip replacemt 5 years ago and her hip has been painful since. Today it is not. ADVANCE DIRECTIVES:: none on file Has patient been provided with info about the portal/API?: Yes Did the patient sign up for the portal?: Yes CODE STATUS:: Full Code INSURANCE COVERAGE / FINANCIAL ISSUES:: Medicare /[facility] CURRENT HOME/COMMUNITY SERVICES/EQUIPMENT:: walker PRIMARY CARE PHYSICIAN:: Vickie Adams POTENTIAL DISCHARGE NEEDS:: follow up with PCP and orthopedic surgeon PATIENT/FAMILY EDUCATION NEEDS:: Review of discharge instructions, activity, limitations, follow up plan, discuss Ask Me Three TRANSPORTATION:: via private vehicle PLAN:: Anticipate Leslie will be discharged home with no new services. She will follow up with her community providers and plan of care and transport with family. COUNTS INCLUDE 234 BEDS AT THE [facility] All Active Problems AAA (Acute) REPAIRED 04/16 [facility] [place] Evaluated 06/20 & 06/2019 - [facility] (leaking proximal endograft, needs 2 stents RIGHT artery & surgical reinforcement) - completed 08/2019 at [facility] [place] Actinic keratosis of right denominational (Acute 10/04/17) & lower right cheek Coronary artery calcification seen on CT scan (Acute 06/01/15) [facility] [place] Depressive disorder (Acute) Gastroesophageal reflux disease (Acute) 04/11 EGD, Dr Hubbard ([facility]) 10/18/17 :aparoscopic Paraesophageal Hernia Repair Hiatal hernia (Acute) 06/01/15 CT at [facility] [place], most of stomach in thorax fundoplication times 2 Hyperlipidemia (Acute 03/30/04) F/H CAD Increased BMI (body mass index) (Acute 02/22/17) Essential hypertension (Acute) Viral wart (Acute) White coat syndrome with diagnosis of hypertension (Acute) Renal artery stenosis (Acute) Stint placed [facility] [place] [facility] 08/2019 Anemia (Chronic) Post-nasal drip (Acute) Globus sensation (Acute) Hemorrhoids (Acute) S/P total right hip arthroplasty (Acute) Chronic hip pain after total replacement of right hip joint (Acute) Medical History Acute pain of left knee (08/30/17) Bronchitis Bunion of great toe (01/17/14) right great toe (seven surg and revisions) 03/12 [facility] [place] recommend non surgical tx Cataract Chronic right shoulder pain (10/04/17) Constipation Elevated BP without diagnosis of hypertension History of stent insertion of renal artery 08/2019 Impacted cerumen, bilateral Pneumonia of right lung due to infectious organism (03/20/15) Right hip pain (05/06/14) h/o trochanteric bursitis DJD Solar lentigo URI (upper respiratory infection) Viral wart on cheek Surgical History Biopsy of breast RIGHT Colonoscopy - IV Sedation (~03/2012) [facility] Extraction of cataract 05/29/14; left and right HERNIA REPAIR (~03/2002) EPIGASTRIC Total 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 KENDRICK Family History Mother , 82 Essential hypertension Abdominal aortic aneurysm Father , 79 Renal failure Sister Essential hypertension Heart disease Hyperlipidemia Son Hyperlipidemia Depression Son No problems noted. Social History Smoking/Tobacco Use Status: Former Tobacco Use Quit Date: 05/01/74 Second Hand Exposure: Yes Smoking risk assessment performed?: Yes Alcohol Intake: never Drug use: Never Counseling given: No Counseling provided: none Caregiver/Support person: No Household members: none Housing: house Communication Needs: Hard of Hearing Do you need help understanding health information?: Rarely Pets and animals: Yes Pets and animals: cat(s) Sexually active: No Do you think of yourself as: straight/heterosexual Current gender identity: female What is your relationship status?: How often do you talk on the phone with friends or family?: three or more times per week How often do you get together with friends or relatives?: twice per week How often do you attend anglican or adventist services?: 4 or more times per year Do you belong to any clubs or organized social groups?: no Panel score (0-1 are the most socially isolated patients): 2 What type of physical activity do you participate in: decline to answer Duration: decline to answer Frequency: decline to answer Alona/Yazdanism: Denominational Special alona needs: No Seatbelt use: always Helmet use: No Drive intox or ride w/intox truck driver supervisor: No Do you feel safe at home: Yes Do you feel safe in your relationship?: Yes Additional Social history: unable to assess privately
--- NOTE | 2022-10-13 09:40 | W.PM.DS.N ---
Date of service: 10/13/22 Time of Service: 07:45 DS: Diagnosis Discharge Diagnosis (1) Chronic hip pain after total replacement of right hip joint: Status: Acute Discharge Plan Disposition Patient Disposition: Home Condition: Good Discharge Details Reason For Visit: Painful R THR Admit Date/Time: 10/12/22 11:41 Admit Provider: Sp Breaux Attending Provider: Sp Breaux Primary Care Provider: Vickie Adams [facility] Course Hospital Course: Patient was admitted to the medical/surgical floor following the procedure. The surgery was tolerated well without any notable medical, surgical, or anesthetic complications. Mobilization began postoperatively. She was voiding spontaneously. Vitals were stable. Physical therapy worked with the patient and was cleared for discharge home. No acute medical issues. Pain was controlled on oral regimen. Home Meds and New Rx's Prescriptions: New aspirin 81 mg tablet,delayed release (DR/EC) 81 mg PO BID Qty: 60 0RF dexamethasone 4 mg tablet 4 mg PO DAILY Qty: 2 0RF Rx Instructions: Starting Post-Operative Day #1 (Day after surgery) tramadol 50 mg tablet 50 mg PO Q4H PRNQty: 10 0RF acetaminophen 500 mg tablet 1,000 mg PO Q8H PRN (Reason: pain) Qty: 90 3RF celecoxib 200 mg capsule 200 mg PO BID PRN (Reason: pain) Qty: 60 1RF Continued meclizine 25 mg tablet 25 mg PO DAILY PRN (Reason: motion sickness) Qty: 10 0RF Rx Instructions: may take one tab daily for vertigo symptoms (DME) BreatheRite MDI Spacer Spacer See Rx Instructions .Route Qty: 1 0RF Rx Instructions: As directed multivitamin Tablet 1 tab PO DAILY albuterol sulfate [ProAir HFA] 90 mcg/actuation HFA aerosol inhaler 2 puff Inhalation QID PRN (Reason: shortness of breath or wheezing) Qty: 1 2RF hydrochlorothiazide 25 mg tablet 25 mg PO DAILY Qty: 90 3RF rosuvastatin [Crestor] 5 mg tablet 5 mg PO HS Qty: 90 3RF Rx Instructions: for cholesterol venlafaxine [Effexor XR] 37.5 mg capsule,extended release 24hr 37.5 mg PO DAILY Qty: 90 4RF fluticasone propionate [Allergy Relief (fluticasone)] 50 mcg/actuation spray,suspension 1 spray intranasal BID PRN (Reason: nasal congestion) Qty: 16 3RF omeprazole 20 mg capsule,delayed release(DR/EC) 20 mg PO DAILY PRN (Reason: GERD) Qty: 90 5RF Rx Instructions: Take in the evening, 2 hours from last food. magnesium 250 MG tablet 250 mg PO PRN PRN potassium gluconate 600 MG tablet 600 mg PO PRN PRN Patient Comments: 07/14/16 per pt uses for leg cramps. diphenhydramine HCl [Allergy] 25 mg Tablet Patient Comments: pt. reports taking a generic allergy pill, 5 mg Discontinued aspirin 81 mg tablet,chewable 81 mg PO DAILY Discharge Instructions Additional Instructions: Total Hip Discharge Instructions Activity: The most important activity is to walk. You should try to take short walks a few times a day. You have no restrictions on movement or positioning, but do not try to force what you do. You will find some stiffness and weakness with hip flexion (lifting your knee). Do not try to strengthen this too early, continue to practice walking and stairs and this will come. - Outpatient physical therapy can be helpful to help return you to a normal gait and improve your flexibility and strength. This can start around 2 weeks. For some patients, it?s not necessary. Usually this is determined at the time of discharge or at the first post-operative visit. - You should wear the SINCERE hose on both legs for 2 weeks. Dressing: Keep the surgical dressing in place for at least one week. After the first week it may be removed and replace with light gauze and tape or nothing. It may get wet after 3 days but avoid soaking the dressing. If it gets wet, just lightly pat dry. It is important to always keep some gauze between skin folds, especially when you are sitting. Spend some time with the wound exposed when you are lying flat as the incision does wrinkle onto itself. Medications: - You should take Tylenol and an anti-inflammatory Celebrex as your primary pain control medications. If the Celebrex is too expensive or not covered, please call the office for another alternative (Advil/Ibuprofen or Naproxen/Aleve). - You have been prescribed a stronger pain medication Tramadol for breakthrough pain, take as needed as prescribed. - You will continue your omepazole to help reduce stomach acid and reflux. - You have also been prescribed Decadron to help with post-operative nausea and pain. You will take this for two days starting tomorrow. - You will be taking Aspirin 81mg twice a day for DVT prevention unless instructed otherwise. - If you have constipation you should take Colace or Miralax (both [id number]). It takes most people 3-4 days to have a bowel movement. Follow-up: 2 weeks If you have any acute concerns or questions, please do not hesitate to contact the office at [phone]. You may contact Dr. Breaux with any questions after hours through the hospital at [phone] or on his cell phone at [phone]. Stand Alone Forms: Nursing Discharge Form Referrals: Sp Breaux MD [ [facility] STAFF PHYSICIAN] - 10/27/22 10:00 am Activity:: Activity as Tolerated Equipment/Supplies:: Walker Diet:: As Tolerated Discharge Orders Discharge Orders: Discharge Order (Routine); Ordered 10/13/22 Ordered By: Sp Breaux DS: Summary Time Spent with Patient providing and/or coordinating discharge services: Less than 30 minutes Status at Discharge Functional status at discharge: uses cane/walker Overall status at discharge: patient is progressing back to baseline Mental Status: mental status grossly normal Speech and Movement: speech and movement normal Mood: congruent mood Affect: normal affect Exam Narrative Exam Narrative: Sitting up in the chair. NAD. AAOx3. RLE dressing c/d/i. No significant ecchymosis. SILT LFCN/Fem/DP/SP/Tib. +ADF/APF/EHL/FHL CR < 2 sec. No pain with IR/ER/Flex Psych Mental Status: mental status grossly normal Speech and Movement: speech and movement normal Mood: congruent mood Affect: normal affect DS: Data Vitals/I&O Vitals and I&O: Vital Signs Temperature 35.7 C L 10/13/22 07:00 Temperature Source Tympanic 10/13/22 07:00 Pulse 57 L 10/13/22 07:00 Pulse Rhythm Regular 10/13/22 07:15 Respiratory Rate 16 10/13/22 07:00 Respiratory Effort Normal, Non-Labored 10/13/22 07:15 Respiratory Depth Normal 10/13/22 07:15 Respiratory Pattern Normal 10/13/22 07:15 Blood Pressure 162/76 H 10/13/22 07:00 Pulse Oximetry 95 10/13/22 07:00 Oxygen Delivery Method Room Air 10/13/22 07:00 Oxygen Flow Rate 0 10/13/22 07:00 Pain Level 2 10/13/22 09:31 Intake & Output 10/12/22 10/12/22 10/13/22 11:59 23:59 11:59 Intake Total 886.667 / 886.667 50 / 50 Output Total 750 / 750 Balance 136.667 / 136.667 50 / 50 Weight 78.4 kg Intake: IV 786.667 / 786.667 50 / 50 Oral 100 / 100 Output: Urine 550 / 550 Estimated Blood Loss 200 / 200 Other: Urine Color Yellow Urine Appearance Clear Clear Urine Odor None Comment post op nerve block - pT incontinent when coughed Emesis Description None Voiding Methods Bedside Com[facility] All Active Problems AAA (Acute) REPAIRED 04/16 [facility] Evaluated 06/20 & 06/2019 - [facility] (leaking proximal endograft, needs 2 stents RIGHT artery & surgical reinforcement) - completed 08/2019 at [facility] Actinic keratosis of right baptist (Acute 10/04/17) & lower right cheek Coronary artery calcification seen on CT scan (Acute 06/01/15) [facility] Depressive disorder (Acute) Gastroesophageal reflux disease (Acute) 04/11 EGD, Dr Hubbard ([facility]) 10/18/17 :aparoscopic Paraesophageal Hernia Repair Hiatal hernia (Acute) 06/01/15 CT at [facility], most of stomach in thorax fundoplication times 2 Hyperlipidemia (Acute 03/30/04) F/H CAD Increased BMI (body mass index) (Acute 02/22/17) Essential hypertension (Acute) Viral wart (Acute) White coat syndrome with diagnosis of hypertension (Acute) Renal artery stenosis (Acute) Stint placed [facility] 08/2019 Anemia (Chronic) Post-nasal drip (Acute) Globus sensation (Acute) Hemorrhoids (Acute) S/P total right hip arthroplasty (Acute) Chronic hip pain after total replacement of right hip joint (Acute) Medical History Acute pain of left knee (08/30/17) Bronchitis Bunion of great toe (01/17/14) right great toe (seven surg and revisions) 03/12 [facility] recommend non surgical tx Cataract Chronic right shoulder pain (10/04/17) Constipation Elevated BP without diagnosis of hypertension History of stent insertion of renal artery 08/2019 Impacted cerumen, bilateral Pneumonia of right lung due to infectious organism (03/20/15) Right hip pain (05/06/14) h/o trochanteric bursitis DJD Solar lentigo URI (upper respiratory infection) Viral wart on cheek Surgical History Biopsy of breast RIGHT Colonoscopy - IV Sedation (~03/2012) [facility] Extraction of cataract 05/29/14; left and right HERNIA REPAIR (~03/2002) EPIGASTRIC Total 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 KENDRICK Family History Mother , 82 Essential hypertension Abdominal aortic aneurysm Father , 79 Renal failure Sister Essential hypertension Heart disease Hyperlipidemia Son Hyperlipidemia Depression Son No problems noted. Social History Smoking/Tobacco Use Status: Former Tobacco Use Quit Date: 05/01/74 Second Hand Exposure: Yes Smoking risk assessment performed?: Yes Alcohol Intake: never Drug use: Never Counseling given: No Counseling provided: none Caregiver/Support person: No Household members: none Housing: house Communication Needs: Hard of Hearing Do you need help understanding health information?: Rarely Pets and animals: Yes Pets and animals: cat(s) Sexually active: No Do you think of yourself as: straight/heterosexual Current gender identity: female What is your relationship status?: How often do you talk on the phone with friends or family?: three or more times per week How often do you get together with friends or relatives?: twice per week How often do you attend buddhism or congregational services?: 4 or more times per year Do you belong to any clubs or organized social groups?: no Panel score (0-1 are the most socially isolated patients): 2 What type of physical activity do you participate in: decline to answer Duration: decline to answer Frequency: decline to answer Alona/Church: [employer] Special alona needs: No Seatbelt use: always Helmet use: No Drive 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
--- NOTE | 2022-10-13 09:43 | IN_ITS ---
Date of service: 10/13/22 Time of Service: 09:07 PT Notes Visit Reasons: Painful R THR Physical Therapy Inpatient Initial Evaluation Date: 10/13/2022 Referring Doctor: CONNER Poe PT Orders: PT CONSULT: Eval/Treat Precautions: Fall. Standard. Activity as tolerated. Patient Profile/Admitting Diagnosis: Eryn is a 77-year-old female s/p acetabular component revision of previous SINGH due to chronic hip pain on POD 1. PMHX: All Active Problems?(Updated 09/10/22 @ 08:43 by Sp Breaux MD) Chronic hip pain after total replacement of right hip joint (Acute) S/P total right hip arthroplasty (Acute) Hemorrhoids (Acute) Globus sensation (Acute) Post-nasal drip (Acute) Anemia (Chronic) Renal artery stenosis (Acute) Stint placed [facility] 08/2019AAA (Acute) REPAIRED 04/16 [facility] Evaluated 06/20 & 06/2019 - [facility] (leaking proximal endograft, needs 2 stents RIGHT artery & surgical reinforcement) - completed 08/2019 at [facility] White coat syndrome with diagnosis of hypertension (Acute) Viral wart (Acute) Essential hypertension (Acute) Increased BMI (body mass index) (Acute 02/22/17) Hyperlipidemia (Acute 03/30/04) F/H CAD Hiatal hernia (Acute) 06/01/15 CT at [facility], most of stomach in thorax fundoplication times 2 Gastroesophageal reflux disease (Acute) 04/11 EGD, Dr Hubbard ([facility]) 10/18/17 :aparoscopic Paraesophageal Hernia Repair Depressive disorder (Acute) Coronary artery calcification seen on CT scan (Acute 06/01/15) [facility] Actinic keratosis of right latter-day (Acute 10/04/17) & lower right cheek Medical History? Acute pain of left knee (08/30/17) Bronchitis Bunion of great toe (01/17/14) right great toe (seven surg and revisions) 03/12 [facility] recommend non surgical tx Cataract Chronic right shoulder pain (10/04/17) Constipation Elevated BP without diagnosis of hypertension Impacted cerumen, bilateral Pneumonia of right lung due to infectious organism (03/20/15) Right hip pain (05/06/14) h/o trochanteric bursitis DJD Solar lentigo URI (upper respiratory infection) Viral wart on cheek Surgical History? Biopsy of breast RIGHT Colonoscopy - IV Sedation (~03/2012) [facility] Extraction of cataract 05/29/14; left and right HERNIA REPAIR (~03/2002) EPIGASTRIC Total 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 KENDRICK Social History/Home Situation: Lives alone in a private home with 3 steps to enter with rails that are wide apart. Modified independent with 4-wheeled walker. Equipment Owned/DME: 4WW Subjective: Reports 2/10 pain in the right hip. Could not stop commenting about how much improved her pain level has been since after surgery. Objective: General Observation: Patient was inside toilet with a walker left outside toilet door when PT arrived. Mental Status: Alert and oriented as to person, place, time, and purpose. Able to pay attention, focus, and respond appropriately. Pain: As above Vital Signs: WNL as closely monitored by nursing staff. ROM: Right Lower Extremity: Able to bend the hip up to 90 degrees, discomfort level increases with bending past 90. Knee and ankle WFL. Left Lower Extremity: Hip flexion WFL. Hip abduction WFL. Knee flexion WFL. Ankle dorsiflexion WFL. Ankle plantarflexion WFL. Strength: Right Lower Extremity: Hip flexors 3-/5. Hip abductors 4-/5. Knee flexors 4/5. Knee extensors 4/5. Ankle dorsiflexors 5/5. Ankle plantarflexors 5/5. Left Lower Extremity: Hip flexors 5/5. Hip abductors 5/5. Knee flexors 5/5. Knee extensors 5/5. Ankle dorsiflexors 5/5. Ankle plantarflexors 5/5. Bed Mobility/Transfers: Rolling independent Supine to sit independent Sit to supine independent Sit to stand independent with 4WW Stand to sit independent with 4WW Bed to toilet seat with independent with 4WW Toilet seat to bedside commode independent with 4WW Bed to reclining chair independent with 4WW Reclining chair to bed independent with 4WW Gait: Instructed patient with level surface ambulation of 300 feet + 300 feet requiring supervision. Mild limp noted at end of activity with patient reporting fatigue. No reports of increased pain. Stairs: Ascended and descended 6 x 4 inch steps and 4 x 6-inch steps while holding onto B rails with varm-[id number]/alternating pattern with no report of increased pain. Supervision assist only. Balance: Static Sitting: Normal Dynamic Sitting: Normal Static Standing: Fair Dynamic Standing: Fair Special Tests: Mobility Limitations Standardized Measure [facility] AM-PAC 6 clicks Basic Mobility Inpatient Short Form: Raw Score: 24 CMS Score: 0% deficit Informed Consent/Education: Patient was instructed in purpose of PT consult and plan of care. Agreeable to proceed with established PT POC to achieve personal goals. THERA ACT: Instructed patient with performance of HEP below. Provided printout of of same. Access Code: [email or web address] URL: [email or web address] Date: 10/13/2022 Prepared by: Denise Ramirez Exercises - Supine Gluteal Sets - 1 x daily - 7 x weekly - 1 sets - 10 reps - 5 hold - Supine Quadricep Sets - 1 x daily - 7 x weekly - 1 sets - 10 reps - 5 hold - Supine Heel Slide - 1 x daily - 7 x weekly - 1 sets - 10 reps - 5 hold - Seated Long Arc Quad - 1 x daily - 7 x weekly - 1 sets - 10 reps - 5 hold - Seated March - 1 x daily - 7 x weekly - 1 sets - 10 reps - 5 hold Assessment: Needs use of 4WW for all mobility ADL performance to maximize independence and reduce fall risk. Patient presents with clinical signs and symptoms consistent with current/admitting diagnoses that have resulted to mobility limitations, gait instability, generalized weakness, and overall ADL decline as demonstrated by the following impairment level findings: 1. Decreased strength to R hip major muscle groups 2. Impaired standing balance 3. Impaired activity tolerance 4. Limitation of joint range of motion in R hip flexion Impairments are contributing to the following functional limitations: 1. Difficulty with ambulation without assistive device 2. Increased completion time for mobility ADL performance 3. Increased risk for falls 4. Difficulty with managing steps alone safely Patient is assessed as a [id number] moderate complexity based on the following: History: 77-year-old female with past medical history as indicated above Examination: As above Presentation: Stable Decision Makin moderate complexity Goals: N/A. PT evaluation and one treatment session only for functional mobility training and HEP instruction. Plan of Care/Treatment Plan: N/A. PT evaluation and one treatment session only for functional mobility training and HEP instruction. DISCHARGE RECOMMENDATIONS: [] Home with no services [] [] Home with services [specify] [X] Home with outpatient PT. Home when medically cleared by orthopedic surgeon. Outpatient PT services in order to optimize functional mobility outcomes and facilitate return to independent community ambulation without assistive device. [] SNF for continued rehabilitation [] [] [facility] [] [] SNF versus LTC based on ability to participate and progress [] TREATMENT CODE/TIME: 04829 x 20 minutes, 08007 x 15 minutes beginning at 9:07 AM. Thank you for the opportunity to participate in the care of this patient. Denise Ramirez PT, DPT, CLT [facility] [place], [place]
== END 2022-10-13 12:23 | disposition home or self-care (01) | DRG 468 ==
LOC: PDS 13:30 → MS 16:50
PROVIDERS: Admitting Provider Student in an Organized Health Care Education/Training Program; PCP Family Medicine; Visit Provider Student in an Organized Health Care Education/Training Program
PROC: 0SRA03A Replacement of Right Hip Joint, Acetabular Surface with Ceramic Synthetic Substitute, Uncemented, Open Approach (ICD-10-PCS; CPT 27137; principal; 2022-10-12 15:15)
DX: T84.84XA Pain due to internal orthopedic prosthetic devices, implants and grafts, initial encounter (principal); G89.29 Other chronic pain; Z96.641 Presence of right artificial hip joint; K59.00 Constipation, unspecified; Z95.828 Presence of other vascular implants and grafts; I71.40 Abdominal aortic aneurysm, without rupture, unspecified; I25.10 Atherosclerotic heart disease of native coronary artery without angina pectoris; F32.A Depression, unspecified; K21.9 Gastro-esophageal reflux disease without esophagitis; K44.9 Diaphragmatic hernia without obstruction or gangrene; E78.5 Hyperlipidemia, unspecified; I10 Essential (primary) hypertension; D64.9 Anemia, unspecified
CPT/HCPCS: 27137; 97162; 97530; 73501; J0690; J3490; J8540

== ENCOUNTER 2022-10-27 10:08 | Outpatient (CLI) | payer MEDICARE, BC, SELFPAY ==
--- NOTE | 2022-10-27 10:00 | DI.RAD_ITS ---
Exam(s) XR HIP RT AP LAT ONLY EXAM: XR HIP RT AP LAT ONLY INDICATION: 1ST POST OP R ACETABULAR REVISION. COMPARISON: CR XR HIP RT COMPLETE AP PELVIS from 09/09/2022 XA XR HIP RT IN OR from 10/12/2022 TECHNIQUE: 2D digital imaging was performed. Two views. FINDINGS: A right hip prosthesis is again noted. There are no abnormal surrounding bony lucencies. Vascular s tents and coils are again noted in the right pelvis. DATA REPOSITORY: RADIATION DOSE DELIVERED:
== END 2022-10-27 10:09 | disposition home or self-care (01) ==
LOC: DIORS 10:09
PROVIDERS: PCP Family Medicine; Referring Provider Family Medicine; Visit Provider Physician Assistant
DX: Z47.1 Aftercare following joint replacement surgery; Z96.641 Presence of right artificial hip joint
CPT/HCPCS: 73502

== ENCOUNTER → 2022-12-05 09:00 | Outpatient (BNVA) | payer MEDICARE, BC, SELFPAY | PROVIDERS: PCP Family Medicine; Referring Provider Family Medicine; Visit Provider Student in an Organized Health Care Education/Training Program | DX: Z47.1 Aftercare following joint replacement surgery (principal); Z96.641 Presence of right artificial hip joint ==

== ENCOUNTER 2023-01-10 12:12 | Outpatient (REF) | payer MEDICARE, BC, SELFPAY ==
[2023-01-10 21:20] LABS: Abs Immature Grans 0.24 10^3/uL (0.0-0.06); Absolute Basophil Count 0.07 10^3/uL (0.0-0.2); Absolute Eosinophil Count 0.16 10^3/uL (0.0-0.7); Absolute Lymphocyte Count 1.68 10^3/uL (1.2-3.4); Absolute Monocyte Count 0.66 10^3/uL (0.1-0.8); Absolute Neutrophil Count 6.57 10^3/uL (1.2-6.7); Basophils % 0.7; Eosinophils % 1.7; HCT 35.2 % (36.0-46.0); HGB 11.9 g/dL (11.2-15.7); Immature Grans % 2.6; Lymphocytes % 17.9; MCHC 33.8 % (32.0-36.0); MCV 86 fL (80-95); Neutrophils % 70.1; Platelet Count 300 10^3/uL (130-400); RDW 13.1 % (11.7-14.6); RDW-SD 40.6 fL; WBC 9.38 10^3/uL (4.4-10.8)
[2023-01-10 21:26] LABS: Anion Gap 9.6 mmol/L (3-11); BUN 10 mg/dL (7-18); CO2 27.4 mmol/L (21.0-32.0); CREATININE 0.8 mg/dL (0.55-1.02); Calcium 9.2 mg/dL (8.5-10.1); Chloride 100 mmol/L (98-107); Estimated GFR 75.37 (mL/min/1.73m2); Glucose 90 mg/dL (74-106); Potassium 4.1 mmol/L (3.5-5.1); Sodium 137 mmol/L (136-145)
[2023-01-10 21:27] LABS: Total Iron Binding Capacity 291 ug/dL (250-450)
[2023-01-10 21:40] LABS: Ferritin 179 ng/mL (8-252); TSH 2.71 uIU/mL (0.36-3.74)
== END 2023-01-10 12:13 | disposition home or self-care (01) ==
LOC: LBN 12:12
PROVIDERS: PCP Family Medicine; Visit Provider Nurse Practitioner Family
DX: R53.83 Other fatigue (principal); R63.8 Other symptoms and signs concerning food and fluid intake; R68.89 Other general symptoms and signs; R50.9 Fever, unspecified; I10 Essential (primary) hypertension; D64.9 Anemia, unspecified
CPT/HCPCS: 80048; 82728; 83550; 84443; 85025

== ENCOUNTER → 2023-07-17 13:38 | Outpatient (CLI) | payer MEDICARE, BC, SELFPAY ==
--- NOTE | 2023-07-17 12:15 | DI.RAD_ITS ---
Exam(s) XR CHEST 2V PA LATERAL EXAM: XR CHEST 2V PA LATERAL CLINICAL HISTORY: sob, r06.02,evaluate pathology. TECHNIQUE: 2D digital imaging was performed. COMPARISON: CR CHEST 2 VIEWS PA,LAT from 04/03/2015 CT CHEST WITH CONTRAST from 04/07/2015 CR XR CHEST 2V PA LATERAL from 02/11/2022 FINDINGS: 2 views: There is an aortic stent graft again noted. The superior aspect of this is in the lower thoracic aor ta, unchanged. The lower most aspect of the stent graft is beyond the field of view of this chest x- ray. Heart size is normal. The mediastinum is not widened. Moderate size hiatal hernia which was evident on chest x-ray 2014 is not evident on the present study. Left lung is clear. There are mild increased markings in the right lower lobe infrahilar region, sli ghtly more so than previous. There are no pleural effusions. No pulmonary edema. IMPRESSION: Possible subtle right lower lung infiltrate. No pleural effusions DATA REPOSITORY: RADIATION DOSE DELIVERED:
== END ==
PROVIDERS: PCP Family Medicine; Visit Provider Nurse Practitioner Family
DX: R06.02 Shortness of breath (principal); R91.8 Other nonspecific abnormal finding of lung field
CPT/HCPCS: 71046

== ENCOUNTER 2023-07-17 15:49 | Outpatient (CLI) | payer MEDICARE, BC, SELFPAY ==
[2023-07-17 13:40] LABS: Abs Immature Grans 0.05 10^3/uL (0.0-0.06); Absolute Basophil Count 0.04 10^3/uL (0.0-0.2); Absolute Eosinophil Count 0.27 10^3/uL (0.0-0.7); Basophils % 0.3; Eosinophils % 2.2; HGB 12.4 g/dL (11.2-15.7); Immature Grans % 0.4; Lymphocytes % 11.7; MCH 28.4 pg (27.0-33.0); MCHC 31.8 % (32.0-36.0); MCV 89 fL (80-95); MPV 8.7 fL (8.0-11.0); Monocytes % 5.5; Neutrophils % 79.9; Platelet Count 266 10^3/uL (130-400); RBC 4.36 10^6/uL (3.93-5.22); RDW 12.7 % (11.7-14.6); RDW-SD 41.7 fL; WBC 12.26 10^3/uL (4.4-10.8)
[2023-07-17 13:46] LABS: Absolute Lymphocyte Count 1.43 10^3/uL (1.2-3.4); Absolute Monocyte Count 0.67 10^3/uL (0.1-0.8)
[2023-07-17 15:41] LABS: Anion Gap 8.8 mmol/L (3-11); BUN 17 mg/dL (7-18); CO2 29.2 mmol/L (21.0-32.0); CREATININE 0.9 mg/dL (0.55-1.02); Calcium 9.9 mg/dL (8.5-10.1); Chloride 103 mmol/L (98-107); Estimated GFR 65.03 (mL/min/1.73m2); Glucose 93 mg/dL (74-106); NT-proBNP 545 pg/mL (<300); Potassium 4.2 mmol/L (3.5-5.1); Sodium 141 mmol/L (136-145)
== END 2023-07-17 15:50 | disposition home or self-care (01) ==
LOC: LBO 15:51
PROVIDERS: PCP Family Medicine; Visit Provider Nurse Practitioner Family
DX: J21.9 Acute bronchiolitis, unspecified; R05.9 Cough, unspecified
CPT/HCPCS: 36415; 80048; 71046; 83880; 85025

== ENCOUNTER → 2023-08-08 09:20 | Outpatient (CLI) | payer MEDICARE, BC, SELFPAY ==
--- NOTE | 2023-08-08 09:00 | DI.RAD_ITS ---
Exam(s) XR CHEST 2V PA LATERAL EXAM: XR CHEST 2V PA LATERAL CLINICAL HISTORY: pneumonia, feeling worse J18.9 TECHNIQUE: 2D digital imaging was performed. Two views. COMPARISON: CR XR CHEST 2V PA LATERAL from 02/11/[address] CHEST PE CTA from 07/07/2022 CR XR CHEST 2V PA LATERAL from 07/17/2023 FINDINGS: HEART: Normal size. Aorta: Not dilated. Calcification at arch. PULMONARY VASCULATURE: Normal. LUNGS: Clear. PLEURAL SPACE: No pleural effusion or pneumothorax. BONE:Unremarkable for age. Soft tissues: Abdominal aortic stents. IMPRESSION: No acute abnormality. DATA REPOSITORY: RADIATION DOSE DELIVERED:
== END ==
PROVIDERS: PCP Family Medicine; Visit Provider Family Medicine
DX: J18.9 Pneumonia, unspecified organism (principal)
CPT/HCPCS: 71046

== ENCOUNTER → 2023-10-11 00:06 | Outpatient (CLI) | payer MEDICARE, BC, SELFPAY ==
--- NOTE | 2023-10-11 14:30 | DI.US_ITS ---
APPROVED REPORT EXAM: Comprehensive 2D, Doppler, and color-flow Echocardiogram Patient Location: Out-Patient Debt Counselor: Zahira Quinn RDCS (AE) Indications: SOB Other Information Study Quality: Adequate Conclusion Normal left ventricular wall thickness and chamber size. Ejection fraction is 65%. Wall motion is n ormal Normal right ventricular size and function Both atria are normal in size There are no structural valvular abnormalities Mild aortic regurgitation Trace mitral regurgitation Estimated right ventricular systolic pressure is 29 mmHg Wall motion Left Ventricle The left ventricle is normal size. The left ventricular systolic function is normal. The left ventric ular ejection fraction is within the normal range. There is normal left ventricular wall thickness. T here is normal LV segmental wall motion. There is no ventricular septal defect visualized. LVEF is 65 %. Right Ventricle The right ventricle is normal size. The right ventricular systolic function is normal. Atria The left atrium size is normal. The right atrium size is normal. The interatrial septum is intact wit h no evidence for an atrial septal defect. Aortic Valve The aortic valve is normal in structure. There is no aortic valvular stenosis. Mild aortic regurgitat ion. Mitral Valve Mild mitral annular calcification. No evidence of mitral valve stenosis. Trace mitral regurgitation. Tricuspid Valve The tricuspid valve is normal in structure. There is no tricuspid valve stenosis. Trace tricuspid reg urgitation. The RVSP is 28.6 mmHg. Pulmonic Valve The pulmonary valve is normal in structure. There is no pulmonic valvular stenosis. Trace pulmonic re gurgitation. Great Vessels The aortic root is normal in size. The ascending aorta is normal in size. Aortic arch is not well vis ualized. IVC is normal in size and collapses >50% with inspiration. Pericardium There is no pericardial effusion. 2D Dimensions IVSD d PLAX 0.89 cm F: 0.6-1.0 Ao Root d 2.45 cm F: 2.7 - 3.3 LVPW d PLAX 0.87 cm F: 0.6 - 1.0 Ao Asc Diam d 2.85 cm F: 2.3 - 3.1 LVID d PLAX 4.15 cm F: 3.8 - 5.2 LVDs 2.77 cm F: 2.2 - 3.5 LV EF Teichholz 62.1 % FS 33.09 % LV EDV (Teich) 76.2 mL LV ESV (Teich) 28.9 mL M-Mode TAPSE 2.33 cm (M/F) >1.7 Auto EF LV EDV A4C 91.1 mL LV EDV A2C 96.6 mL LV EDV BP 94.4 mL LV ESV A4C 43.1 mL LV ESV A2C 43.6 mL LV ESV BP 43.3 mL LVEF(%) A4C 52.8 % LVEF(%) A2C 54.8 % LVEF(%) BP 54.2 % LV SV A4C 48.1 ml LV SV A2C 52.9 ml LV SV BP 51.1 ml LV CO A4C 2.7 L/min LV CO A2C 2.9 L/min LV CO BP 2.8 L/min HR A4C 56.15 BPM HR A2C 53.96 BPM LV EDV Index (BP) LA Volume LA Length A4C 5.0 cm LA Length A2C 4.6 cm LA Area A4C s 15.14 cm2 LA Area A2C s 15.44 cm2 LA Vol A4C A-L 39.20 mL LA Vol A2C A-L 43.60 mL LA Vol Biplane A-L 42.8 mL LA Vol/BSA A4C A-L LA Vol/BSA A2C A-L LA Vol/BSA BP A-L 23.2 mL/m2 LA Vol A4C MOD 36.3 mL LA Vol A2C MOD 40.5 mL LA Vol BP MOD 39.6 mL RA Volume RA Area A4C 13.1 cm2 RA ESV A4C (A-L) 34.2mL RA Vol/BSA A4C A-L RA Length A4C 4.2 cm RA ESV A4C (MOD) 31.1mL LV Diastology MV E' medial 0.065 (>0.07 m/s) MV E Vmax 0.71 (0.4-1.3 m/s) MV E/E' MED 10.93 (<14) MV A Vmax 1.05 (0.4-1.3 m/s) E/A Ratio 0.7 Aortic Valve AoV Vmax 1.34 m/s LVOT Vmax 1.14 m/s AoV Peak Grad 37.9 mmHg LVOT Peak Grad 5.2 mmHg AoV Area (Vmax) 2.18 cm2 LVOT VTI 0.260 m AoV VTI 0.327 m LVOT Mean Grad 2.6 mmHg AoV Mean [place]. 0.90 m/s LVOT SV 66.27 mL AoV Mean Grad 3.7 mmHg LVOT Diam s 1.80 cm AoV Area (VTI) 2.02 cm2 AV Regurg Peak Gr. 68.80 mmHg Velocity Ratio 0.85 AR Decel [place] 1.8m/sec2 AR DT 2278 msec AR PHT 661 msec AR Vmax 4.15 m/s Mitral Valve MV DT 271 (160-240 msec) MV Vmax TIPS 0.96 m/s MV Mean Grad 1.3 (<2mmHg) MV VTI 0.326 m Pulmonary Valve PV Vmax 0.96 (0.5-1.5 m/s) RVOT Vmax 0.54 m/s PV Peak Grad 3.7 mmHg RVOT Peak Gr. 1.2 mmHg PV Mean Laron 0.61 m/s RVOT VTI 0.121 m PV Mean Grad 1.8 mmHg RVOT Mean Gr. 0.7 mmHg Tricuspid Valve RA Pressure 3.00 mmHg TR Vmax 2.53 m/s TV S' 0.14 m/s TR Peak Grad 25.6 mmHg RVSP (TR) 28.6 mmHg
== END ==
PROVIDERS: PCP Family Medicine; Visit Provider Family Medicine
DX: R06.02 Shortness of breath (principal); I35.1 Nonrheumatic aortic (valve) insufficiency
CPT/HCPCS: 93306

== ENCOUNTER 2023-10-13 11:06 | Outpatient (CLI) | payer MEDICARE, BC, SELFPAY ==
--- NOTE | 2023-10-13 10:00 | DI.RAD_ITS ---
Exam(s) XR HIP RT AP LAT ONLY EXAM: XR HIP RT AP LAT ONLY CLINICAL HISTORY: ANNUAL F/U R SINGH. TECHNIQUE: 2D digital imaging was performed. COMPARISON: CR XR HIP RT AP LAT ONLY from 10/27/2022 CR XR CHEST 2V PA LATERAL from 08/08/2023 FINDINGS: Two views. There is stable position alignment of the components of the right hip prosthesis. No fracture or loo sening evident. Again noted is the distal right iliac artery component of an aortic EVAR as well as Coral embolizatio n material in the proximal aspect of the right internal iliac artery IMPRESSION: Stable appearance of right hip prosthesis. DATA REPOSITORY: RADIATION DOSE DELIVERED:
== END 2023-10-13 11:07 | disposition home or self-care (01) ==
LOC: DIORS 11:06
PROVIDERS: PCP Family Medicine; Referring Provider Family Medicine
DX: Z96.641 Presence of right artificial hip joint (principal); Z47.1 Aftercare following joint replacement surgery; M70.62 Trochanteric bursitis, left hip
CPT/HCPCS: 20610; J1010; 73502

== ENCOUNTER 2023-11-23 02:42 | Outpatient (CLI) | payer MEDICARE, BC, SELFPAY ==
[2023-11-23 12:38] LABS: ALT 24 U/L (14-59); AST 23 U/L (15-37); Albumin 3.7 g/dL (3.4-5.0); Alkaline Phosphatase 74 U/L (46-116); Anion Gap 4.7 mmol/L (3-11); BUN 14 mg/dL (7-18); Bilirubin, Total 0.39 mg/dL (0.2-1.0); CO2 33.3 mmol/L (21.0-32.0); CREATININE 0.9 mg/dL (0.55-1.02); Calculated LDL 158 mg/dL (<100); Chloride 103 mmol/L (98-107); Cholesterol 247 mg/dL (<200); Estimated GFR 65.03 (mL/min/1.73m2); Glucose 102 mg/dL (74-106); HDL Cholesterol 70 mg/dL (40-60); Potassium 4.1 mmol/L (3.5-5.1); Sodium 141 mmol/L (136-145); Total Protein 7.3 g/dL (6.4-8.2); Triglyceride 96 mg/dL (<150)
[2023-11-23 12:45] LABS: Hemoglobin A1C 5.7 % (<5.7)
== END 2023-11-23 02:43 | disposition home or self-care (01) ==
LOC: LOS 02:43
PROVIDERS: PCP Family Medicine; Visit Provider Family Medicine
DX: I10 Essential (primary) hypertension (principal); E11.9 Type 2 diabetes mellitus without complications
CPT/HCPCS: 36415; 80053; 80061; 83036

== ENCOUNTER 2024-03-25 21:30 | Outpatient (REF) | payer MEDICARE, BC, SELFPAY ==
[2024-03-25 21:57] LABS: Bilirubin Negative (Negative); Blood Negative (Negative); Clarity Clear (Clear); Glucose Negative (Negative); Ketones Negative (Negative); Leukocyte Esterase Trace (Negative); Nitrite Negative (Negative); Specific Gravity 1.015 (1.005-1.025); Urobilinogen 0.2 mg/dL (Up to 0.2); pH 8.5 (5-8)
[2024-03-25 22:09] LABS: Bacteria Negative HPF (Negative); Epithelial Cells Rare HPF (Negative); RBC Negative HPF (0-2); WBC 0-2 HPF (0-5)
[2024-03-25 22:10] LABS: C & S Indicated? No; Crystals Other HPF (Negative); Mucus Negative (Negative); Other Cells Rare Transitional (Negative)
== END 2024-03-25 21:31 | disposition home or self-care (01) ==
LOC: LBN 21:30
PROVIDERS: PCP Family Medicine; Visit Provider Family Medicine
DX: R35.0 Frequency of micturition (principal); M54.6 Pain in thoracic spine; E78.5 Hyperlipidemia, unspecified
CPT/HCPCS: 81003; 81015

== ENCOUNTER 2024-04-01 02:20 | Outpatient (CLI) | payer MEDICARE, BC, SELFPAY ==
--- NOTE | 2024-04-01 07:30 | DI.RAD_ITS ---
Exam(s) XR THORACIC SPINE COMPLETE EXAM: XR THORACIC SPINE COMPLETE CLINICAL HISTORY: lower thoracic pain,m54.9. TECHNIQUE: 2D digital imaging was performed. Three views. COMPARISON: CR XR CHEST 2V PA LATERAL from 08/08/2023 FINDINGS: BONES: There is no fracture or destructive lesion. The vertebral bodies and posterior elements are un remarkable. ALIGNMENT: Within normal limits. DISKS: Multilevel disc space narrowing and endplate osteophytes which are mobile more prominent in th e lower thoracic levels. SOFT TISSUE: Visualized lungs are clear. Aortic stent noted IMPRESSION: Degenerative changes, greatest in the lower thoracic spine DATA REPOSITORY: RADIATION DOSE DELIVERED:
--- NOTE | 2024-04-01 07:30 | DI.RAD_ITS ---
Exam(s) XR LUMBAR SPINE COMPLETE EXAM: XR LUMBAR SPINE COMPLETE CLINICAL HISTORY: upper lumbar pain,m54.9. TECHNIQUE: 2D digital imaging was performed. Five views. COMPARISON: CR XR DEXA BONE DENSITY W/WO ADENIKE from 04/08/2022 FINDINGS: BONES: No fracture or destructive lesion. Vertebral body heights are maintained. Facet degenerativ e changes present from L3-4 through L5-S1. DISKS: Mild narrowing of the L5-S1 disc space. The remaining intervertebral disc spaces are mainta ined. ALIGNMENT: Lumbar spinal alignment is within normal limits. SOFT TISSUE: Aorta bi-iliac stents. Bilateral renal artery, SMA and celiac axis stents. IMPRESSION: Degenerative changes greatest at L5-S1. DATA REPOSITORY: RADIATION DOSE DELIVERED:
== END 2024-04-01 02:40 ==
LOC: DI 02:20
PROVIDERS: PCP Family Medicine; Visit Provider Family Medicine
DX: M51.34 Other intervertebral disc degeneration, thoracic region (principal); M51.370 Other intervertebral disc degeneration, lumbosacral region with discogenic back pain only
CPT/HCPCS: 72072; 72110

== ENCOUNTER 2024-04-30 10:15 | Outpatient (CLI) | payer MEDICARE, BC, SELFPAY ==
--- NOTE | 2024-04-30 10:15 | RT.EKG_ITS ---
APPROVED REPORT Exam: Resting ECG Reason for Exam: HTN Patient Location: O HR:72 bpm ECG Measurements Heart Rate 72 AXIS [place] 157 P 8 QRSd 83 QRS 102 QT 367 T 34 QTc 402 Conclusion Sinus rhythm...normal P axis, V-rate 50- 99 Atrial premature complexes in couplets...pair SV complexes w/ short R-R Right axis deviation Late transition
== END 2024-04-30 10:16 | disposition home or self-care (01) ==
LOC: DI.CARD 10:16
PROVIDERS: PCP Family Medicine; Visit Provider Internal Medicine Cardiovascular Disease
DX: I10 Essential (primary) hypertension (principal)
CPT/HCPCS: 93010

== ENCOUNTER → 2024-04-30 12:42 | Outpatient (BNVA) | payer MEDICARE, BC, SELFPAY | PROVIDERS: PCP Family Medicine; Referring Provider Family Medicine; Visit Provider Internal Medicine Cardiovascular Disease | DX: I25.10 Atherosclerotic heart disease of native coronary artery without angina pectoris (principal); I49.1 Atrial premature depolarization | CPT/HCPCS: 93005; 99214 ==

== ENCOUNTER 2024-05-13 12:22 | Outpatient (CLI) | payer MEDICARE, BC, SELFPAY ==
[2024-05-13 11:07] LABS: Estimated GFR 57.31 (mL/min/1.73m2)
== END 2024-05-13 12:23 | disposition home or self-care (01) ==
LOC: LBO 12:23
PROVIDERS: PCP Family Medicine; Visit Provider Surgery
DX: I71.41 Pararenal abdominal aortic aneurysm, without rupture (principal)
CPT/HCPCS: 36415; 82565

== ENCOUNTER 2024-10-24 01:03 | Outpatient (CLI) | payer MEDICARE, BC, SELFPAY ==
[2024-10-24 10:14] LABS: Hemoglobin A1C 5.8 % (<5.7)
== END 2024-10-24 01:04 | disposition home or self-care (01) ==
LOC: LBO 01:03
PROVIDERS: PCP Family Medicine; Visit Provider Family Medicine
DX: R63.2 Polyphagia (principal)
CPT/HCPCS: 36415; 83036

== ENCOUNTER 2025-01-04 16:49 | Outpatient (REF) | payer MEDICARE, BC, SELFPAY ==
[2025-01-04 17:46] LABS: Glucose Negative (Negative)
[2025-01-04 17:47] LABS: C & S Indicated? No; RBC Negative HPF (0-2); WBC 0-2 HPF (0-5)
== END 2025-01-04 16:50 | disposition home or self-care (01) ==
LOC: LBN 16:49
PROVIDERS: PCP Family Medicine; Visit Provider Physician Assistant
DX: R30.0 Dysuria (principal)
CPT/HCPCS: 81003; 81015

== ENCOUNTER 2025-01-09 11:36 | Emergency (ER) | payer MEDICARE, BC, SELFPAY ==
[2025-01-09] VITALS (27 sets, daily range): BP systolic 187–240; BP diastolic 68–106; PULSE 57–80; RESP 9–23; TEMP 36.6; O2SAT 91–99
--- NOTE | 2025-01-09 12:00 | DI.CT_ITS ---
Exam(s) CT ABDOMEN PELVIS CTA EXAM: CT ABDOMEN PELVIS CTA CLINICAL HISTORY: left flank pain, recurrent, hx of stents in aorta. TECHNIQUE: Imaging Protocol: Axial computed tomography images with coronal and sagittal reformatted images were created and reviewed CONTRAST MATERIAL: Intravenous: Omnipaque 350 Contrast volume:100 ml Oral: None COMPARISON: CT CTA ABDOMEN from 11/23/[address] CHEST PE CTA from 05/25/[address] CHEST PE CTA from 07/07/2022 FINDINGS: AORTA: There is an aortic EVAR in place and there are associated endovascular stents within the celiac and superior mesenteric arteries as well as in the origin of both renal arteries. The stents appear patent.Maximum diameter of the aortic sac is 4.2 cm. There does not appear to be evidence of an obvious endoleak.. The iliac limbs of at the stent appear patent. However, there is aneurysmal dilatation of the non stented left internal iliac artery which exhibits maximum diameter 2 cm. Thrombosed slightly smaller aneurysm in the right internal iliac artery is noted and there is endovascular coil material in this region. There is no ascites in the abdomen and pelvis. There are no ischemic appearing bowel loops. LIVER: There are few benign cysts in the liver noted, the largest of these measuring 2.7 x 3.0 cm. Similar to previous chest CT scan images of June 2022. No new solid lesions in the liver. There are no dilated intrahepatic ducts. GALLBLADDER/BILIARY: No obvious gallbladder pathology. CBD is not dilated. PANCREAS: No evidence of pancreatic mass nor dilatation of the pancreatic duct. SPLEEN: Spleen is not enlarged. There are no intrasplenic lesions. Splenic and portal veins are patent. ADRENALS: There are no significant adrenal masses. KIDNEYS: Both kidneys exhibit normal size. Right kidney unremarkable. There are parapelvic cysts in left kidney noted. These were evident on CT scan of 2017. No new hydronephrosis nor hydroureter. No obvious calculi. No solid renal masses.. LYMPH NODES: There is no retroperitoneal nor para-aortic adenopathy. No obvious mesenteric masses. ABDOMINAL WALL: There is a mesenteric density anteriorly above the level the umbilicus which measures approximately the 2.7 cm wide by 1.7 cm AP by 4.5 cm craniocaudal. This contains a speck of calcium in its left lateral aspect. GI: There is no evidence of bowel obstruction, free air, nor abscess. PELVIS: LYMPH NODES: There is no intrapelvic nor inguinal adenopathy. GI: No evidence of appendicitis.Sigmoid diverticuli without evidence of obvious acute diverticulitis. URINARY BLADDER: Bladder is partially obscured by beam hardening artifact from right hip prosthesis but there are no obvious abnormalities in the urinary bladder REPRODUCTIVE: Uterus and adnexal regions appear unremarkable. No free fluid. OSSEOUS: Right hip prosthesis. No fractures nor significant osseous lesions. IMPRESSION: 1. Aortic EVAR with no evidence of obvious endoleak 2. There is an aneurysm of the non stented left internal iliac artery which exhibits maximum diameter of 2 cm. There is blood flow in this aneurysm demonstrated. There is an occluded aneurysm of the opposite-right internal iliac artery with adjacent endovascular interventional coil material. 3. Sigmoid diverticuli but no evidence of obvious acute diverticulitis. 4. Left kidney parapelvic cysts are unchanged from CT scan of 2017. Other findings as above. Report called by myself to ER provider 01/09/2025 at 1:25 p.m. RADIATION DOSE DELIVERED: 1,306.07mGy.cm Total DLP DATA REPOSITORY: All CT scans at this facility are submitted to the National Radiology Data Registry (NRDR) Dose Index Registry (DIR) with the [employer] ([employer]). RADIATION OPTIMIZATION: All CT scans at this facility use at least one of these dose optimization techniques: automated exposure control; mA and/or kV adjustment per patient size (includes targeted exams where dose is matched to clinical indication); or iterative reconstruction.
[2025-01-09 12:18] LABS: Abs Immature Grans 0.04 10^3/uL (0.0-0.06); HCT 35.7 % (36.0-46.0); HGB 11.8 g/dL (11.2-15.7); Immature Grans % 0.6 %; MCH 28.6 pg (27.0-33.0); MCHC 33.1 % (32.0-36.0); MCV 86 fL (80-95); MPV 8.5 fL (8.0-11.0); Platelet Count 225 10^3/uL (130-400); RBC 4.13 10^6/uL (3.93-5.22); RDW 13.5 % (11.7-14.6); RDW-SD 41.7 fL; WBC 7.19 10^3/uL (4.4-10.8)
[2025-01-09] MEDS: ACETAMINOPHEN 500 MG/50 ML BAG 200 MG IVPB (12:33)
[2025-01-09] MEDS: Omnipaque 350 MG/ML 100 ML BTL IJ (12:35)
[2025-01-09] MEDS: diazePAM 10 MG/2 ML SYR 2 MG IVP (12:35)
[2025-01-09] MEDS: Normal Saline - Diluent 50 ML VIAL IJ (12:36)
--- NOTE | 2025-01-09 13:00 | RT.EKG_ITS ---
APPROVED REPORT Exam: Resting ECG Reason for Exam: back pain Patient Location: E HR:61 bpm ECG Measurements Heart Rate 61 AXIS [place] 177 P 55 QRSd 84 QRS -39 QT 425 T 22 QTc 428 Conclusion Sinus rhythm, rate 61 No interval abnormalities No STEMI T wave inversion lead III, isolated, new from priors
[2025-01-09 13:24] LABS: Troponin I 8 ng/L (<or=51)
[2025-01-09 13:25] LABS: ALT 19 U/L (14-59); AST 16 U/L (15-37); Albumin 3.7 g/dL (3.4-5.0); Alkaline Phosphatase 87 U/L (46-116); Anion Gap 8.1 mmol/L (3-11); BUN 11 mg/dL (7-18); Bilirubin, Total 0.4 mg/dL (0.2-1.0); CO2 29.9 mmol/L (21.0-32.0); Calcium 10.2 mg/dL (8.5-10.1); Chloride 100 mmol/L (98-107); Estimated GFR 64.63 (mL/min/1.73m2); Glucose 98 mg/dL (74-106); Potassium 4.0 mmol/L (3.5-5.1); Sodium 138 mmol/L (136-145); Total Protein 7.3 g/dL (6.4-8.2)
[2025-01-09 13:37] LABS: Lipase 21 U/L (<78)
[2025-01-09 14:26] LABS: Troponin I 8 ng/L (<or=51)
--- NOTE | 2025-01-09 15:16 | ED.GENADUL_ITS ---
Discharge Plan Disposition Patient Disposition: Home Condition: Stable Discharge Details Clinical Impression: Acute chest wall pain, Elevated blood pressure reading Primary Care Provider: Vickie Adams ED Provider: Keisha Cadena Home Meds and New Rx's Prescriptions: New cyclobenzaprine 5 mg tablet 5 mg PO TID Qty: 10 0RF lidocaine [DermacinRx Lidocan] 5 % adhesive patch,medicated 1 patch topical DAILY Qty: 15 0RF Rx Instructions: leave on most painful area for up to 12 hrs Continued aspirin 81 mg tablet,delayed release (DR/EC) 81 mg PO DAILY cholecalciferol (vitamin D3) 25 mcg/drop ( 1,000 unit/drop) drops 25 mcg PO DAILY spironolactone 25 mg tablet 25 mg PO BID Qty: 60 8RF (DME) BreatheRite MDI Spacer Spacer See Rx Instructions .Route Qty: 1 0RF Rx Instructions: As directed multivitamin Tablet 1 tab PO DAILY venlafaxine [Effexor XR] 37.5 mg capsule,extended release 24hr 37.5 mg PO DAILY Qty: 90 4RF hydrochlorothiazide 25 mg tablet 25 mg PO DAILY Qty: 90 3RF rosuvastatin 5 mg tablet 5 mg PO HS Qty: 90 4RF Rx Instructions: for cholesterol doxazosin 1 mg tablet 1 mg PO QHS Qty: 90 5RF phenazopyridine [Pyridium] 100 mg tablet 100 mg PO TID PRN (Reason: pain) Qty: 6 0RF (DME) Custom Orthotics & foot beds See Rx Instructions .Route .MEDSUPPLY Qty: 1 0RF Rx Instructions: As directed omeprazole 20 mg capsule,delayed release(DR/EC) 20 mg PO DAILY PRN (Reason: GERD) Qty: 90 5RF Rx Instructions: Take in the evening, 2 hours from last food. meclizine 25 mg tablet 25 mg PO DAILY PRN (Reason: motion sickness) Qty: 10 0RF Rx Instructions: may take one tab daily for vertigo symptoms budesonide-formoterol [Symbicort] 160-4.5 mcg/actuation HFA aerosol inhaler 2 puff inhalation BID PRN (Reason: wheezing) Qty: 10.2 4RF fluticasone propionate [Allergy Relief (fluticasone)] 50 mcg/actuation spray,suspension 1 spray intranasal BID PRN (Reason: nasal congestion) Qty: 16 3RF albuterol sulfate [ProAir HFA] 90 mcg/actuation HFA aerosol inhaler 2 puff Inhalation QID PRN (Reason: shortness of breath or wheezing) Qty: 1 2RF magnesium 250 MG tablet 250 mg PO PRN PRN potassium gluconate 600 MG tablet 600 mg PO PRN PRN Patient Comments: 07/14/16 per pt uses for leg cramps. acetaminophen 500 mg tablet 1,000 mg PO Q8H PRN (Reason: pain) Qty: 90 3RF Discharge Instructions Additional Instructions: Your blood pressure is quite high, I recommend talking to you again about additional medication possibly looking at whether effects or might be contributing Lets try cutting your Effexor to every other day and follow-up with [facility] on Monday Please take your blood pressure medications as prescribed I did perform a trigger point injection over the area of tenderness, I have also written you for Lidoderm patches, do not apply the Lidoderm patches for the next 24 hours, you may place this over the area of tenderness and is recommended to use them 12 hours on 12 hours off You may take Tylenol as needed for pain Your CAT scan was reassuring, I spoke with the radiologist and reviewed your [facility] records and it looks like there is no change, I do recommend following up with your vascular doctor in the outpatient setting Should you have chest pain, shortness of breath, or with any new or worsening symptoms please return for reassessment Referrals: Vickie Adams MD, [place] [Primary Care Provider, Medicine] [facility],ELISE Haley [NURSE PRACTITIONER, Medicine] [facility] General Date/Time Provider Initiated Documentation: 01/09/25 11:49 . HPI Narrative: This chronically ill 79-year-old female presents with report of left flank pain she has been intermittent for the past several years but worsening in the past week. She was evaluated at [facility] on approximately 1 week ago for similar presentation and started on antibiotics out of concern for urinary tract inf ection. She denies any fever or chills or associated abdominal pain. She denies exacerbating or alleviating factors aside from position change which does worsen her symptoms. Denies any Pain or swelling or new shortness of breath. She has any hemoptysis. Denies any trauma to the affected area. Denies headache nausea vomiting dizziness. Related Data Home Medications ?Medication ?Instructions ?Recorded ?Confirmed magnesium 250 mg tablet 250 mg PO PRN PRN 07/14/16 0 01/09/25 potassium gluconate 600 mg (99 mg) 600 mg PO PRN PRN 0 07/14/16 01/09/25 tablet inhalational spacing device #1 ea 07/18/22 01/09/25 (BreatheRite MDI Spacer) multivitamin 1 tab PO DAILY 10/10/2212/30 acetaminophen 500 mg tablet 1,000 mg (2 x 500 mg) PO Q 8H PRN 10/13/22 01/09/25 pain #90 tabs aspirin 81 mg tablet,delayed 81 mg PO DAILY 12/05/22 0 01/09/25 release Custom Orthotics & foot beds #1 ea 03/08/23 01/09/25 omeprazole 20 mg capsule,delayed 20 mg PO DAILY PRN GE RD #90 caps 01/25/24 01/09/25 release doxazosin 1 mg tablet 1 mg PO QHS #90 tabs 4 01/09/25 hydrochlorothiazide 25 mg tablet 25 mg PO DAILY #90 ta bs 03/25/24 01/09/25 rosuvastatin 5 mg tablet 5 mg PO HS #90 tab-caps 03/0201/09/25 venlafaxine 37.5 mg 37.5 mg PO DAILY #90 caps 01/09/25 capsule,extended release 24 hr (Effexor XR) meclizine 25 mg tablet 25 mg PO DAILY PRN motion si ckness 04/18/24 01/09/25 #10 tabs phenazopyridine 100 mg tablet 100 mg PO TID PRN pain 6 doses #6 09/07/24 01/09/25 (Pyridium) tabs budesonide-formoterol HFA 160 2 puff inhalation BID DC N wheezing 10/23/24 01/09/25 mcg-4.5 mcg/actuation aerosol #10.2 grams inhaler (Symbicort) fluticasone propionate 50 1 spray intranasal BID PRN n marcelino 10/23/24 01/09/25 mcg/actuation nasal congestion #16 grams spray,suspension (Allergy Relief (fluticasone)) albuterol sulfate 90 mcg/actuation 2 puff inhalation Q ID PRN 12/26/24 01/09/25 aerosol inhaler (ProAir HFA) shortness of breath or wh eezing ##1 cholecalciferol (vitamin D3) 25 25 mcg PO DAILY 01/09/25 mcg/drop (1,000 unit/drop) oral drops spironolactone 25 mg tablet 25 mg PO BID #60 tabs 06/2501/09/25 cyclobenzaprine 5 mg tablet 5 mg PO TID #10 tabs 01/09 lidocaine 5 % topical patch 1 patch topical DAILY #15 ea 01/09/25 (DermacinRx Lidocan) Previous Rx's ?Medication ?Instructions ?Recorded inhalational spacing device #1 ea 07/18/22 (BreatheRite MDI Spacer) acetaminophen 500 mg tablet 1,000 mg (2 x 500 mg) PO Q 8H PRN 10/13/22 pain #90 tabs [employer] Orthotics & foot beds #1 ea 03/08/23 omeprazole 20 mg capsule,delayed 20 mg PO DAILY PRN GE RD #90 caps 01/25/24 release doxazosin 1 mg tablet 1 mg PO QHS #90 tabs 4 hydrochlorothiazide 25 mg tablet 25 mg PO DAILY #90 ta bs 03/25/24 rosuvastatin 5 mg tablet 5 mg PO HS #90 tab-caps 03/02 09/21 venlafaxine 37.5 mg 37.5 mg PO DAILY #90 caps capsule,extended release 24 hr (Effexor XR) meclizine 25 mg tablet 25 mg PO DAILY PRN motion si ckness 04/18/24 #10 tabs phenazopyridine 100 mg tablet 100 mg PO TID PRN pain 6 doses #6 09/07/24 (Pyridium) tabs budesonide-formoterol HFA 160 2 puff inhalation BID DC N wheezing 10/23/24 mcg-4.5 mcg/actuation aerosol #10.2 grams inhaler (Symbicort) fluticasone propionate 50 1 spray intranasal BID PRN n marcelino 10/23/24 mcg/actuation nasal congestion #16 grams spray,suspension (Allergy Relief (fluticasone)) albuterol sulfate 90 mcg/actuation 2 puff inhalation Q ID PRN 12/26/24 aerosol inhaler (ProAir HFA) shortness of breath or wh eezing ##1 spironolactone 25 mg tablet 25 mg PO BID #60 tabs 06/25 cyclobenzaprine 5 mg tablet 5 mg PO TID #10 tabs 01/09 lidocaine 5 % topical patch 1 patch topical DAILY #15 ea 01/09/25 (DermacinRx Lidocan) Allergies Allergy/AdvReac Type Severity Reaction Status Date / Time levofloxacin (From Levaquin) Allergy Intermediate hives Verified 01/09/25 11:47 lactase Allergy Mild Other (See Verified 01/09/25 11:47 Comment) Sulfa (Sulfonamide Allergy Mild Nausea, Verified 01/09/25 11:47 Antibiotics) sick feeling wheat Allergy Mild causes Verified 01/09/25 11:47 congestion Tetracyclines Allergy Unknown Skin Rash Verified 01/09/25 11:47 atorvastatin calcium (From AdvReac Intermediate joint aches Verified 01/09/25 11:47 Lipitor) diltiazem AdvReac Intermediate edema Verified 01/09/25 11:47 fluvastatin sodium (From AdvReac Intermediate joint aches Verified 01/09/25 11:47 Lescol) losartan AdvReac Intermediate Dizziness/L Verified 01/09/25 11:47 ighthead oxycodone AdvReac Intermediate Nausea Verified 01/09/25 11:47 simvastatin (From Zocor) AdvReac Intermediate joint aches Verified 01/09/25 11:47 lactose AdvReac Mild mucus Verified 01/09/25 11:47 build up in throat pravastatin AdvReac Mild THUMB PAIN Verified 01/09/25 11:47 gliadin Allergy Intermediate Unknown Uncoded 01/09/25 11:47 General Stated Complaint: FlankPain ROBERT: 3 Exam Narrative Exam Narrative: Alert and oriented well-appearing 79-year-old female has reproducible pain over the left lateral latissimus dorsi muscle, her lungs are clear to auscultation and her pulses are intact all 4 extremities there is no pulsatile mass in her abdomen and her abdomen is nontender,, her lungs are clear to auscultation she is speaking in complete sentences no calf swelling or tenderness, ambulatory with steady gait answering questions appropriately Course Vital Signs Vital signs: Vital Signs Temperature 36.6 C 01/09/25 11:40 Pulse 80 01/09/25 11:40 Respiratory Rate 16 01/09/25 11:40 Blood Pressure 240/105 H 01/09/25 11:40 Pulse Oximetry 98 01/09/25 11:40 Temperature 36.6 C 01/09/25 11:47 Pulse 63 01/09/25 14:10 Pulse 60 01/09/25 14:20 Respiratory Rate 9 L 01/09/25 14:20 Blood Pressure 237/68 H 01/09/25 14:02 Blood Pressure Mean 132 01/09/25 14:02 Blood Pressure Position Supine 01/09/25 11:47 Pulse Oximetry 99 01/09/25 14:10 Pain Level 6 01/09/25 11:47 Lab/Test Results Lab/Test Results: Laboratory Tests Range/Units 01/09/25 01/09/25 11:54 14:01 WBC (4.4-10.8) 10^3/uL 7.19 RBC (3.93-5.22) 10^6/uL 4.13 Hgb (11.2-15.7) g/dL 11.8 Hct (36.0-46.0) % 35.7 L MCV (80-95) fL 86 MCH (27.0-33.0) pg 28.6 MCHC (32.0-36.0) % 33.1 RDW (11.7-14.6) % 13.5 Plt Count (130-400) 10^3/uL 225 MPV (8.0-11.0) fL 8.5 Immature Gran % % 0.6 Neutrophils % % 69.6 Lymphocytes % % 17.2 Monocytes % % 8.1 Eosinophils % % 3.9 Basophils % % 0.6 Nucleated RBC % (0.0-0.3) % 0.0 Absolute Neutrophils (1.2-6.7) 10^3/uL 5.01 Absolute Lymphocytes (1.2-3.4) 10^3/uL 1.24 Absolute Monocytes (0.1-0.8) 10^3/uL 0.58 Absolute Eosinophils (0.0-0.7) 10^3/uL 0.28 Absolute Basophils (0.0-0.2) 10^3/uL 0.04 Sodium (136-145) mmol/L 138 Potassium (3.5-5.1) mmol/L 4.0 Chloride (98-107) mmol/L 100 Carbon Dioxide (21.0-32.0) mmol/L 29.9 Anion Gap (3-11) mmol/L 8.1 BUN (7-18) mg/dL 11 Creatinine (0.55-1.02) mg/dL 0.9 Est GFR (CKD-EPI 2020) (mL/min/1.73m2) 64.63 Glucose (74-106) mg/dL 98 Calcium (8.5-10.1) mg/dL 10.2 H Total Bilirubin (0.2-1.0) mg/dL 0.4 AST (15-37) U/L 16 ALT (14-59) U/L 19 Alkaline Phosphatase (46-116) U/L 87 Troponin I (<or=51) ng/L 8 8 Total Protein (6.4-8.2) g/dL 7.3 Albumin (3.4-5.0) g/dL 3.7 Lipase (<78) U/L 21 Medical Decision Making Results: CTA abdomen and pelvis was evaluated to further assess patient's EVAR and vascular status. She has a history of multiple stents in aorta and iliac and renal arteries have been placed with [facility] and followed by same. I spoke with Dr. Li, radiologist and he does not see any acute pathology. 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 I reviewed her [facility] CTA from May and it looks like it has remained 2 cm and not change in comparison. Her diagnostic labs are quite reassuring. 2 negative troponins and EKG largely unchanged Assessment and plan: Patient does have a markedly elevated blood pressure, she will need this followed in the outpatient setting. Her Effexor may be contributing to this, she is also on only diuretics for her hypertension. She would likely need adjustments to her blood pressure is better managed although I do not think it is contributing to her symptoms today so largely this is asymptomatic hypertension in the setting of a vasculopath. She will decrease her Effexor to every other day she may need adjustment to a different medication that does not have norepinephrine in it I will leave this to the discretion of her doctor. I performed a trigger point injection with 10 cc of lidocaine with epinephrine and patient had good effect, this is into the latissimus dorsi muscle. There were no complications at the time of procedure At this time and reassessment her pain is improved and medically her blood pressure remains elevated and she will follow-up with her primary care physician she is given 5 mg of Flexeril for home which she may take sparingly as needed for discomfort and Lidoderm patches which she will not apply for 24 hours. Return precautions reviewed and patient expressed understanding [facility] All Active Problems (Updated 01/09/25 @ 14:43 by CONNER Mg) Elevated blood pressure reading (Acute) Acute chest wall pain (Acute) Polyphagia (Acute) Thoracic back pain (Acute) Back pain (Acute) Trochanteric bursitis, left hip (Acute) DEPO MEDROL 10/13/23; 10/01/20 Facial lesion (Acute) History of skin cancer (Acute) Seborrheic keratosis (Acute) Bilateral hearing loss due to cerumen impaction (Acute) Bilateral foot pain (Acute) Hallux valgus, bilateral (Acute) History of revision of total hip arthroplasty (Acute 10/12/22) ACETABULAR REVISION AAA (Acute) REPAIRED 04/16 [facility] Evaluated 06/20 & 06/2019 - [facility] (leaking proximal endograft, needs 2 stents RIGHT artery & surgical reinforcement) - completed 08/2019 at [facility] Coronary artery calcification seen on CT scan (Acute 06/01/15) [facility] Depressive disorder (Acute) Gastroesophageal reflux disease (Acute) 04/11 EGD, Dr Hubbard ([facility]) 10/18/17 :aparoscopic Paraesophageal Hernia Repair Hiatal hernia (Acute) 06/01/15 CT at [facility], most of stomach in thorax fundoplication times 2 Hyperlipidemia (Acute 03/30/04) F/H CAD Essential hypertension (Acute) White coat syndrome with diagnosis of hypertension (Acute) Renal artery stenosis (Acute) Stint placed [facility] 08/2019 Anemia (Chronic) Medical History Pneumonia History of stent insertion of renal artery 08/2019 Hemorrhoids Solar lentigo Viral wart on cheek Bronchitis URI (upper respiratory infection) Globus sensation Post-nasal drip Constipation Viral wart Elevated BP without diagnosis of hypertension Impacted cerumen, bilateral Right hip pain (05/06/14) h/o trochanteric bursitis DJD Pneumonia of right lung due to infectious organism (03/20/15) Increased BMI (body mass index) (02/22/17) Chronic right shoulder pain (10/04/17) Cataract Bunion of great toe (01/17/14) right great toe (seven surg and revisions) 03/12 [facility] recommend non surgical tx Acute pain of left knee (08/30/17) Actinic keratosis of right alevism (10/04/17) & lower right cheek Surgical History S/P total right hip arthroplasty Total 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 KENDRICK HERNIA REPAIR (~03/2002) EPIGASTRIC Colonoscopy - IV Sedation (~03/2012) [facility] Extraction of cataract 05/29/14; left and right Biopsy of breast RIGHT Family History Mother , 82 Essential hypertension Abdominal aortic aneurysm Father , 79 Renal failure Sister Essential hypertension Heart disease Hyperlipidemia Son Hyperlipidemia Depression Son No problems noted. Social History Smoking/Tobacco Use Status: Former Tobacco Use tobacco type: cigarettes Quit Date: 05/01/74 Second Hand Exposure: Yes Smoking risk assessment performed?: Yes Alcohol Intake: never Drug use: Never Counseling given: No Counseling provided: none Caregiver/Support person: No Household members: none Housing: house Number of Children: 2 number of grandchildren: 4 Communication Needs: Hard of Hearing Do you need help understanding health information?: Rarely current occupation: Retired Pets and animals: Yes Pets and animals: cat(s) Sexually active: No Do you think of yourself as: straight/heterosexual Current gender identity: female What is your relationship status?: How often do you talk on the phone with friends or family?: three or more times per week How often do you get together with friends or relatives?: once per week How often do you attend hinduism or restorationist services?: 4 or more times per year Do you belong to any clubs or organized social groups?: no Panel score (0-1 are the most socially isolated patients): 2 What type of physical activity do you participate in: other Details: housework Duration: decline to answer Frequency: decline to answer Alona/Yazidi: Buddhist Special alona needs: No Agree to transfusion: Yes Seatbelt use: always Helmet use: No Drive intox or ride w/intox petroleum transport driver: No Working smoke detector in home: Yes Carbon monox detector in home: Yes Firearms in home: No Do you feel safe at home: Yes Do you feel safe in your relationship?: Yes Additional Social history: unable to assess privately
== END 2025-01-09 14:59 | disposition home or self-care (01) ==
PROVIDERS: Emergency Provider Physician Assistant; PCP Family Medicine
DX: R07.9 Chest pain, unspecified (principal); R03.0 Elevated blood-pressure reading, without diagnosis of hypertension
CPT/HCPCS: 99285; 99284; 36415; 96374; 96375; 80053; 83690; 93005; 74174; 84484; 85025; 93010; J0131; J3360; J3490

== ENCOUNTER → 2025-04-10 12:00 | Outpatient (CLI) | payer MEDICARE, BC, SELFPAY ==
--- NOTE | 2025-04-10 12:28 | DI.RAD_ITS ---
Exam(s) XR CHEST 2V PA LATERAL EXAM: XR CHEST 2V PA LATERAL CLINICAL HISTORY: eval pna, cough, R05.9 TECHNIQUE: 2D digital imaging was performed. Two views. COMPARISON: CR XR CHEST 2V PA LATERAL from 08/08/2023 FINDINGS: HEART: Normal size. Aorta: Not mildly tortuous. Calcified. PULMONARY VASCULATURE: Normal. MEDIASTINUM: Unremarkable. LUNGS: Clear. PLEURAL SPACE: No pleural effusion or pneumothorax. BONE:Unremarkable for age. SOFT TISSUES: Stent in lower thoracic and abdominal aorta IMPRESSION: No acute abnormality. DATA REPOSITORY: RADIATION DOSE DELIVERED:
== END ==
LOC: DI 12:00
PROVIDERS: PCP Nurse Practitioner Family; Visit Provider Nurse Practitioner Family
DX: R05.9 Cough, unspecified (principal)
CPT/HCPCS: 71046